=== PATIENT | female | born 1970 | race Hispanic/Latino ===

== ENCOUNTER 2016-10-13 16:43 | Observation (INO) | payer MEDICARE, OTHER ==
[2016-10-13 16:46] VITALS: BMI 14.7
--- NOTE | 2016-10-13 17:04 | ED PDOC ---
Arrival/HPI - General Historian: Patient - History of Present Illness Time/Duration: > week Symptom Onset: Gradual Symptom Course: Worsening Quality: Stabbing Severity Level: Severe Activities at Onset: Rest <Pa Sawant - Last Filed: 10/13/16 23:03> <Ramiro George - Last Filed: 10/13/16 23:10> - General Chief Complaint: Abdominal Pain Time Seen by Provider: 10/13/16 17:01 - History of Present Illness Narrative History of Present Illness (Text): 10/13/16 18:12 46yo F with PMHx significant for HTN, Perf Gastric ulcers s/p multiple ex laps and bowel resection/repair here for evaluation of left sided abd pain. Patient states that she has had nausea, vomiting (non-bilious, non bloody) and diarrhea (non-bloody, not melanotic) for the past 2 weeks. She also c/o severe left sided abd pain which is described as sharp, radiates to the left back and up to left shoulder. The past 3 days, her symptoms have gotten much worse and she is unable to tolerate any PO intake. She states that she was a senior care resident until September 01 due to chronic illness from her history of perforated gastric ulcers and multiple abdominal surgeries. She was discharged two weeks ago and she moved to [place] to [facility]. She states that 2 weeks ago, she had an EGD and was told that she "has multiple esophageal ulcers. " Also reports an 8lb weight loss over the past month. Denies any CP/SOB. No Headaches. No Fevers or chills. No Urinary changes. PMHx: Asthma, Chronic Anemia, HTN, Gastric Ulcers, Esophageal ulcers PSHx: Multiple Exploratory Laparotomies with bowel resection/repair. Cholecystectomy. Partial Gastrectomy. Allergy: Vancomycin (Pa Sawant) Past Medical History - Provider Review Nursing Documentation Reviewed: Yes - Infectious Disease Hx of Infectious Diseases: None - Cardiac Hx Cardiac Disorders: Yes Hx Hypertension: Yes - Pulmonary Hx Respiratory Disorders: Yes Hx Asthma: Yes - Neurological Hx Neurological Disorder: No - HEENT Hx HEENT Disorder: Yes Other/Comment: dry eyes - Renal Hx Renal Disorder: No - Endocrine/Metabolic Hx Endocrine Disorders: No - Hematological/Oncological Hx Blood Disorders: No - Integumentary Hx Dermatological Disorder: No - Musculoskeletal/Rheumatological Hx Musculoskeletal Disorders: Yes Hx Back Pain: Yes - Gastrointestinal Hx Gastrointestinal Disorders: Yes Other/Comment: endoscopy, "removed half my stomach" - Genitourinary/Gynecological Hx Genitourinary Disorders: No - Psychiatric Hx Psychophysiologic Disorder: Yes Hx Anxiety: Yes Hx Depression: Yes Hx Substance Use: No - Surgical History Hx Cholecystectomy: Yes Other/Comment: perforated bowel surgery x2 - Anesthesia Hx Anesthesia: Yes Hx Anesthesia Reactions: No <Pa Sawant - Last Filed: 10/13/16 23:03> Family/Social History - Physician Review Nursing Documentation Reviewed: Yes Family/Social History: Unknown Family HX Smoking Status: Current Some Days Smoker Hx Alcohol Use: No Hx Substance Use: No <Pa Sawant - Last Filed: 10/13/16 23:03> Allergies/Home Meds <Pa Sawant - Last Filed: 10/13/16 23:03> <Ramiro George - Last Filed: 10/13/16 23:10> Allergies/Adverse Reactions: Allergies vancomycin Allergy (Verified 10/13/16 16:46) ANAPHYLAXIS Home Medications: Home Meds Medication Instructions Recorded Confirmed Atenolol [Tenormin] 25 mg PO DAILY 10/13/16 10/13/16 Cetirizine HCl [Zyrtec] 10 mg PO DAILY 10/13/16 10/13/16 Clotrimazole [Mycelex Amado] 10 mg PO DAILY 10/13/16 10/13/16 Diazepam [Valium] 5 mg PO DAILY 10/13/16 10/13/16 DiphenhydrAMINE [Benadryl] 1 tab PO DAILY 10/13/16 10/13/16 Ergocalciferol (Vitamin D2) 1 tab PO QWK 10/13/16 10/13/16 [Vitamin D2] Famotidine [Pepcid] 1 tab PO DAILY 10/13/16 10/13/16 Fluticasone Propionate [Flovent 1 puff IH DAILY 10/13/16 10/13/16 Diskus] Gabapentin [Neurontin] 400 mg PO TID 10/13/16 10/13/16 Iron Sucrose Complex [Venofer] 200 mg IV Q30D 10/13/16 10/13/16 LORazepam [Ativan] 2 mg PO TID 10/13/16 10/13/16 Metoclopramide [Reglan] 5 mg PO DAILY 10/13/16 10/13/16 Nicotine 21 mg/24 hr [Nicoderm Cq] 1 patch TD DAILY 10/13/16 10/13/16 Omeprazole Magnesium [Prilosec Otc] 1 tab PO DAILY 10/13/16 10/13/16 Promethazine [Phenergan] 25 mg PO DAILY 10/13/16 10/13/16 Spironolactone [Aldactone] 1 tab PO DAILY 10/13/16 10/13/16 Sucralfate [Carafate] 10 ml PO DAILY 10/13/16 10/13/16 Trazodone HCl [Trazodone HCl] 150 mg PO DAILY 10/13/16 10/13/16 fentaNYL 100mcg/hr [Duragesic 1 patch TD Q72H 10/13/16 10/13/16 Patch 100mcg/hr] Review of Systems - Physician Review All systems were reviewed & negative as marked: Yes - Review of Systems Constitutional: Fatigue. absent: Fevers Eyes: Normal ENT: Normal Respiratory: Normal Cardiovascular: Normal Gastrointestinal: Abdominal Pain, Diarrhea, Nausea, Vomiting, Appetite Changes Genitourinary Female: absent: Dysuria, Frequency Musculoskeletal: absent: Back Pain Skin: absent: Rash Neurological: absent: Headache, Dizziness Psychiatric: absent: Anxiety, Depression <Savana,Pa - Last Filed: 10/13/16 23:03> Physical Exam Vital Signs Reviewed: Yes Temperature: Afebrile Blood Pressure: Normal Pulse: Tachycardic Respiratory Rate: Normal Appearance: Positive for: Ill-Appearing, Cachectic Pain Distress: Moderate Mental Status: Positive for: Alert and Oriented X 3 - Systems Exam Head: Present: Atraumatic, Normocephalic Extroacular Muscles: Present: EOMI Conjunctiva: Present: Normal Mouth: Present: Moist Mucous Membranes Neck: Present: Normal Range of Motion. No: JVD, Lymphadenopathy Respiratory/Chest: Present: Clear to Auscultation, Good Air Exchange. No: Respiratory Distress, Accessory Muscle Use, Wheezes, Decreased Breath Sounds, Rales, Rhonchi Cardiovascular: Present: Normal S1, S2, Peripheal Pulses Present, Tachycardic. No: Murmurs Abdomen: Present: Tenderness (left upper and left lower abd tenderness.), Other (Midline surgical scar noted. Left sided voluntary guarding. No Rebound tenderness. Soft, non-distended. ) Back: Present: CVA Tenderness (left sided CVA tenderness. No right sided CVA tenderness. No midline tenderness. ) Upper Extremity: Present: Normal Inspection, Normal ROM, NORMAL PULSES Lower Extremity: Present: Normal Inspection, NORMAL PULSES. No: Edema, CALF TENDERNESS, Tenderness Neurological: Present: GCS=15, Speech Normal Skin: Present: Warm, Dry, Normal Color Psychiatric: Present: Alert, Oriented x 3 <Pa Sawant - Last Filed: 10/13/16 23:03> Medical Decision Making <Pa Sawant - Last Filed: 10/13/16 23:03> - Lab Interpretations I have reviewed the lab results: Yes - RAD Interpretation Marketing Director Assisted Living: Radiologist <Ramiro George - Last Filed: 10/13/16 23:10> ED Course and Treatment: 10/13/16 19:52 46yo F with Abd pain, N/V/D - Patient states hx of gastric perforation with multiple previous Exploratory Laparotomies - CBC/CMP/Mg/Phos - Lipase - EKG - Troponin - Blood Cxs - UA/Urine Cxs - CXR - Abd/Pelvis PO and IV contrast - Morphine - 1L NS Bolus - Benadryl - Zofran - Reassess and Dispo 10/13/16 21:39 Labs wnl Hypokalemia noted. Repleted Awaiting VRads report UA - with evidence of UTI Patient denies any clinical symptoms CT Abd pelvis - no acute findings. Does have chronic findings as noted in report. 10/13/16 22:51 Discussed findings with patient. All questions and concerns addressed. Plan for admission to Dr. Mcpherson. Patient understands and agrees. Discussed case with Dr. Mcpherson. Agrees and accepts patient under her care. She requests Surgery and GI consults. And Flagyl coverage. Discussed case with certified surgical technologist. He agrees and will evaluate the patient. (Pa Sawant) 10/13/16 20:11 Patient seen and evaluated with resident. Agree with HPI, clinical findings, plan and treatment Patient is a 46 year old female, with a history of perforated gastric ulcers, and multiple abdominal surgeries, presents to the emergency department complaining of left sided abdominal pain associated with nausea, vomiting and diarrhea for past 2 weeks. States symptoms have worsened over past 3 days. 10/13/16 23:09 Patient with fever; urine shows UTI; CT a/p with no acute findings but still with intractable pain. Dr. Sawant discussed with Dr. Mcpherson who will place the patient on her service. (Ramiro George) - Lab Interpretations Lab Results: 10/13/16 18:00 10/13/16 18:00 Lab Results 10/13/16 18:00: pO2 108 H, VBG pH 7.35, VBG pCO2 51.0, VBG HCO3 28.2 H, VBG Total CO2 29.8 H, VBG O2 Sat (Calc) 97.1 H, VBG Base Excess 1.7, VBG Potassium 3.3 L, Sodium 141.0, Chloride 105.0, Glucose 89, Lactate 1.2, FiO2 21.0, Venous Blood Potassium 3.3 L 10/13/16 18:00: Sodium 141, Chloride 106, Potassium 3.2 L, Carbon Dioxide 25, Anion Gap 13, BUN 13, Creatinine 0.6, Est GFR ( Amer) > 60, Est GFR (Non- Af Amer) > 60, Random Glucose 85, Calcium 8.7, Phosphorus 3.6, Magnesium 1.8, Total Bilirubin 0.3, AST 28, ALT 24, Alkaline Phosphatase 73, Total Protein 6.2 , Albumin 3.4, Globulin 2.7, Albumin/Globulin Ratio 1.3, Lipase 33 10/13/16 18:00: WBC 7.3, RBC 4.61, Hgb 14.7, Hct 45.2, MCV 98.0, MCH 31.9, MCHC 32.5, RDW 15.6 H, Plt Count 259, MPV 8.3, Gran % 59.5, Lymph % (Auto) 32.9, Dare % (Auto) 6.2 H, Eos % (Auto) 1.0 L, Baso % (Auto) 0.4, Gran # 4.33, Lymph # 2.4, Dare # 0.5, Eos # 0.1, Baso # 0.03 10/13/16 17:10: Urine Color Yellow, Urine Appearance Sl cloudy, Urine pH 5.5, Ur Specific [place] 1.025, Urine Protein 30 H, Urine Glucose (UA) Negative, Urine Ketones Trace H, Urine Blood Trace-intact H, Urine Nitrate Positive H, Urine Bilirubin Negative, Urine Urobilinogen 1.0 H, Ur Leukocyte Esterase Trace H, Urine RBC 2 - 5, Urine WBC 25 - 30, Ur Epithelial Cells 6 - 8, Urine Bacteria Many, Urine HCG, Qual Negative - RAD Interpretation Narrative RAD Interpretations (Text): CT Abdomen and Pelvis With Intravenous Contrast Dictated and Authenticated by: Tyshawn Richardson MD FINDINGS: Lower thorax: Atelectatic changes are identified at the bilateral lung bases. ABDOMEN: Liver: There is hepatomegaly. Mild perihepatic ascites is visualized. Mild intrahepatic biliary dilatation is visualized. Within the right hepatic lobe, there is a 0.6 cm hypodense cyst or hemangioma. Hyperdense calcifications are visualized anterior to the liver. Gallbladder and bile ducts: Surgical clips are identified within the gallbladder fossa, compatible with cholecystectomy. Pancreas: Normal contour, without acute peripancreatic stranding. Spleen: No splenomegaly. Adrenals: No mass. Kidneys and ureters: No hydronephrosis. No solid mass. Stomach and bowel: There is gastric wall thickening, suggestive of gastritis. Wall thickening is also visualized of the distal esophagus, suggestive of esophagitis, although additional pathology cannot be excluded. Surgical clips are identified within the upper abdomen and adjacent to the stomach. Appendix: The appendix is not visualized. PELVIS: Bladder: No mass. Reproductive: The uterus is incompletely visualized, which may be postoperative. There is a hypodense suspected nabothian cyst at the level of the cervix measuring 1.0 x 0.8 cm. ABDOMEN and PELVIS: Intraperitoneal space: No free air. Bones/joints: No acute fracture. Vasculature: There is heterogeneous enhancement of a vessel inferior to the left renal vein, likely due to the timing of injection. There is dilatation of the splenic vein and portal vein, suggestive of portal hypertension. Lymph nodes: There is a mildly enlarged left upper para-aortic lymph node measuring 1.7 x 0.6 cm. This is nonspecific as to etiology. No significant pelvic lymphadenopathy. IMPRESSION: 1. There is hepatomegaly. Mild perihepatic ascites is visualized. Mild intrahepatic biliary dilatation is visualized. Correlation with serum bilirubin is visualized. 2. There is gastric wall thickening, suggestive of gastritis. Wall thickening is also visualized of the distal esophagus, suggestive of esophagitis, although additional pathology cannot be excluded. 3. There is dilatation of the splenic vein and portal vein, suggestive of portal hypertension. 4. Within the right hepatic lobe,, there is a 0.6 cm hypodense cyst or hemangioma. 5. There is a mildly enlarged left upper para-aortic lymph node measuring 1.7 x 0.6 cm. This is nonspecific as to etiology. 6. Additional CT findings described above. (Ramiro George) Radiology Orders: 10/13/16 17:34 ABD PELVIS PO & IV CONTRAST [CT] Stat CHEST TWO VIEWS (PA/LAT) [RAD] Stat - Medication Orders Current Medication Orders: Potassium Chloride (Potassium Chloride 10 Meq/100 Ml) 10 meq in 100 mls @ 100 mls/hr IVPB Q2H BELLE Stop: 10/14/16 04:59 Last Admin: 10/13/16 22:29 Dose: 100 mls/hr Sodium Chloride (Sodium Chloride 0.9%) 1,000 mls @ 100 mls/hr IV .Q10H BELLE Metronidazole (Flagyl) 500 mg in 100 mls @ 100 mls/hr IVPB STAT STA PRN Reason: Protocol Stop: 10/13/16 23:59 Discontinued Medications Diphenhydramine HCl (Benadryl) 12.5 mg IVP STAT STA Stop: 10/13/16 18:21 Last Admin: 10/13/16 18:34 Dose: 12.5 mg Fentanyl (Duragesic) 1 patch TD ONCE ONE Stop: 10/13/16 22:52 Sodium Chloride (Sodium Chloride 0.9%) 1,000 mls @ 999 mls/hr IV .Q1H1M STA Stop: 10/13/16 18:52 Last Admin: 10/13/16 18:12 Dose: 999 mls/hr Ceftriaxone Sodium (Rocephin 1 Gram Ivpb) 1 gm in 100 mls @ 200 mls/hr IVPB STAT STA PRN Reason: Protocol Stop: 10/13/16 22:56 Last Admin: 10/13/16 22:44 Dose: 200 mls/hr Iohexol (Omnipaque 240 (50 Ml)) Confirm Administered Dose 50 ml .ROUTE .STK-MED ONE Stop: 10/13/16 18:20 Iohexol (Omnipaque 350 100 Ml) Confirm Administered Dose 350 mg .ROUTE .STK-MED ONE Stop: 10/13/16 19:03 Morphine Sulfate (Morphine) 2 mg IVP STAT STA Stop: 10/13/16 17:35 Last Admin: 10/13/16 18:12 Dose: 2 mg Re-Assess: DEBI Pain Assessment Document 10/13/16 19:12 JOSEPH (Rec: 10/13/16 19:21 [email or web address] [id number]) Pain Reassessment Is this a pain reassessment? Yes Sleep Is patient sleeping during reassessment? No Presence of Pain Presence of Pain Yes Pain Scale Used Pain Scale Used Numeric Description Description Intermittent Intensity of Pain at present 3 Morphine Sulfate (Morphine) 4 mg IVP STAT STA Stop: 10/13/16 22:50 Ondansetron HCl (Zofran Inj) 4 mg IVP STAT STA Stop: 10/13/16 17:35 Last Admin: 10/13/16 18:15 Dose: 4 mg Pantoprazole Sodium (Protonix Inj) 40 mg IVP STAT STA Stop: 10/13/16 22:28 Last Admin: 10/13/16 22:44 Dose: 40 mg - PA / INTERVIEWING CLERK / Resident Statement RHYS has reviewed & agrees with the documentation as recorded. / has examined the patient and agrees with the treatment plan. <Pa Sawant - Last Filed: 10/13/16 23:03> - PA / INTERVIEWING CLERK / Resident Statement RHYS has reviewed & agrees with the documentation as recorded. / has examined the patient and agrees with the treatment plan. <Ramiro George - Last Filed: 10/13/16 23:10> - Scribe Statement Provider Scribe Attestation: All medical record entries made by the Scribe were at my direction and personally dictated by me. I have reviewed the chart and agree that the record accurately reflects my personal performance of the history, physical exam, medical decision making, and the department course for this patient. I have also personally directed, reviewed, and agree with the discharge instructions and disposition. (Ramiro George) Disposition/Present on Arrival - Present on Arrival Any Indicators Present on Arrival: No History of DVT/PE: No History of Uncontrolled Diabetes: No Urinary Catheter: No History of Decub. Ulcer: No History Surgical Site Infection Following: None - Disposition Have Diagnosis and Disposition been Completed?: Yes Disposition Time: 22:55 Patient Plan: Admission, Observation <Pa Sawant - Last Filed: 10/13/16 23:03> <Ramiro George - Last Filed: 10/13/16 23:10> - Disposition Diagnosis: Abdominal pain Disposition: HOSPITALIZED Patient Problems: Current Active Problems Problem Status Onset Abdominal pain Acute Condition: FAIR Referrals: PCP,NO [Primary Care Provider] - Follow up with primary Forms: [employer] (American)
[2016-10-13] MEDS ORDERED: Morphine 2 mg/ml ISec IVP STA (17:34)
[2016-10-13] MEDS ORDERED: Sodium Chloride 0.9% 1,000 ML IV STA (17:52)
[2016-10-13] MEDS ORDERED: Iohexol 240 (50 ml) ONE (18:19)
[2016-10-13] MEDS ORDERED: DiphenhydrAMINE 50 mg/ml Inj IVP STA (18:20)
[2016-10-13 18:26] LABS: BASO # 0.03 K/mm3 (0.0-2.0); BASO % 0.4 % (0.0-3.0); EOS # 0.1 (0.0-0.7); GRAN # 4.33 (1.4-6.5); GRAN % 59.5 % (50.0-68.0); HEMOGLOBIN 14.7 g/dL (12.0-16.0); LYMPH # 2.4 (1.2-3.4); LYMPH % 32.9 % (22.0-35.0); MEAN CORPUSCULAR HEMOGLOBIN 31.9 pg (25.0-35.0); MEAN CORPUSCULAR HGB CONC 32.5 g/dl (31.0-37.0); MEAN PLATELET VOLUME 8.3 fl (7.0-11.0); MONO # 0.5 (0.1-0.6); MONO % 6.2 % (1.0-6.0); PLATELET COUNT 259 10^3/uL (120.0-450.0); RBC 4.61 10^6/uL (3.5-6.1); RED CELL DISTRIBUTION WIDTH 15.6 % (11.5-14.5); WHITE BLOOD COUNT 7.3 10^3/ul (4.5-11.0)
[2016-10-13 18:35] LABS: VENOUS BLOOD GAS BASE EXCESS 1.7 mmol/L (0.0-2.0); VENOUS BLOOD GAS PO2 108 mm/Hg (30-55); VENOUS BLOOD PH 7.35 (7.32-7.43)
[2016-10-13 18:41] LABS: ALB/GLOB RATIO 1.3 (1.1-1.8); ALBUMIN 3.4 g/dL (3.0-4.8); ALT/SGPT 24 U/L (7-56); AST/SGOT 28 U/L (15-39); BLOOD UREA NITROGEN 13 mg/dL (7-21); CALCIUM 8.7 mg/dL (8.4-10.5); GFR AFRICAN-AMERICAN > 60; GFR NON-AFRICAN AMERICAN > 60; LIPASE 33 U/L (23-300); MAGNESIUM 1.8 mg/dL (1.7-2.2)
[2016-10-13 18:43] LABS: PH,URINE 5.5 (4.7-8.0); URINE BILIRUBIN NEGATIVE (NEGATIVE); URINE BLOOD TRACE-INTACT (NEGATIVE); URINE GLUCOSE (UA) NEGATIVE (NEGATIVE); URINE LEUKOCYTE ESTERASE TRACE Leu/uL (NEGATIVE); URINE NITRATE POSITIVE (NEGATIVE); URINE PROTEIN 30 mg/dL (<30 mg/dL)
[2016-10-13 18:50] LABS: URINE APPEARANCE SL CLOUDY (CLEAR); URINE COLOR YELLOW (YELLOW)
[2016-10-13 18:52] LABS: HCG,QUALITATIVE URINE NEGATIVE (NEGATIVE); URINE BACTERIA MANY (NEG); URINE WBC 25 - 30 /hpf (0-6)
[2016-10-13] MEDS ORDERED: Iohexol 350 MG/100 ML VIAL ONE (19:02)
--- NOTE | 2016-10-13 21:56 | CT ---
EXAM: CT Abdomen and Pelvis With Intravenous Contrast EXAM DATE/TIME: 10/13/2016 5:34 PM a focal area of heterogeneous enhancement CLINICAL HISTORY: The patient age is 46 years old and is female; Pain; Abdominal pain; Localized; Left lower quadrant (llq); Prior surgery; Surgery date: 6+ months; Surgery type: Gb, 2 x surgery for perforated bowel; Additional info: Abd pain Facility exam id and description Ct abdpelc abd pelvis po iv contrast TECHNIQUE: Axial computed tomography images of the abdomen and pelvis with intravenous contrast. All CT scans at this facility use one or more dose reduction techniques, viz.: automated exposure control; ma/kV adjustment per patient size (including targeted exams where dose is matched to indication; i.e. head); or iterative reconstruction technique. Coronal and sagittal reformatted images were created and reviewed. CONTRAST: 83 mL of omni 350 administered intravenously. COMPARISON: No relevant prior studies available. FINDINGS: Lower thorax: Atelectatic changes are identified at the bilateral lung bases. ABDOMEN: Liver: There is hepatomegaly. Mild perihepatic ascites is visualized. Mild intrahepatic biliary dilatation is visualized. Within the right hepatic lobe, there is a 0.6 cm hypodense cyst or hemangioma. Hyperdense calcifications are visualized anterior to the liver. Gallbladder and bile ducts: Surgical clips are identified within the gallbladder fossa, compatible with cholecystectomy. Pancreas: Normal contour, without acute peripancreatic stranding. Spleen: No splenomegaly. Adrenals: No mass. Kidneys and ureters: No hydronephrosis. No solid mass. Stomach and bowel: There is gastric wall thickening, suggestive of gastritis. Wall thickening is also visualized of the distal esophagus, suggestive of esophagitis, although additional pathology cannot be excluded. Surgical clips are identified within the upper abdomen and adjacent to the stomach. Appendix: The appendix is not visualized. PELVIS: Bladder: No mass. Reproductive: The uterus is incompletely visualized, which may be postoperative. There is a hypodense suspected nabothian cyst at the level of the cervix measuring 1.0 x 0.8 cm. ABDOMEN and PELVIS: Intraperitoneal space: No free air. Bones/joints: No acute fracture. Vasculature: There is heterogeneous enhancement of a vessel inferior to the left renal vein, likely due to the timing of injection. There is dilatation of the splenic vein and portal vein, suggestive of portal hypertension. Lymph nodes: There is a mildly enlarged left upper para-aortic lymph node measuring 1.7 x 0.6 cm. This is nonspecific as to etiology. No significant pelvic lymphadenopathy. IMPRESSION: 1. There is hepatomegaly. Mild perihepatic ascites is visualized. Mild intrahepatic biliary dilatation is visualized. Correlation with serum bilirubin is visualized. 2. There is gastric wall thickening, suggestive of gastritis. Wall thickening is also visualized of the distal esophagus, suggestive of esophagitis, although additional pathology cannot be excluded. 3. There is dilatation of the splenic vein and portal vein, suggestive of portal hypertension. 4. Within the right hepatic lobe,, there is a 0.6 cm hypodense cyst or hemangioma. 5. There is a mildly enlarged left upper para-aortic lymph node measuring 1.7 x 0.6 cm. This is nonspecific as to etiology. 6. Additional CT findings described above.
[2016-10-13] MEDS ORDERED: cefTRIAXone 1 gm 1 GM/100 ML BAG IVPB STA (22:27)
[2016-10-13] MEDS ORDERED: Morphine 4 mg/ml ISec IVP STA (22:49)
[2016-10-13] MEDS ORDERED: Sodium Chloride 0.9% 1,000 ML IV SCH (23:00)
[2016-10-13] MEDS ORDERED: metroNIDAZOLE IV 500 mg/100 ml 500 MG/100 ML BAG IVPB STA (23:00)
[2016-10-14] MEDS ORDERED: metroNIDAZOLE IV 500 mg/100 ml 500 MG/100 ML BAG IVPB STA (00:31)
--- NOTE | 2016-10-14 00:44 | CP.PCM.PN ---
Subjective - Date & Time of Evaluation Date of Evaluation: 10/14/16 Time of Evaluation: 00:41 - Subjective Subjective: Patient was seen in the emergency room initially and then in her room . When she was in the ER , she wanted to sign out AMA, therefore I was called. When I arrived in the ER, she went out with ER staff to smoke cigarette, after she came back , she decided to stay. Later on I was called from the floor because she demanded her xanax and pain medicine. This 46 years old woman was admitted with worsening abdominal pain, nausea. Has PMH of perforated ulcer, gastrectomy, multiple exploratory laparotomies, hepatomegaly, ascites, allergy to vancomycin. Objective - Vital Signs/Intake and Output Vital Signs (last 24 hours): Temp Pulse Resp BP Pulse Ox 100.5 F H 88 18 125/85 100 10/13/16 17:14 10/13/16 20:12 10/13/16 20:12 10/13/16 20:12 10/13/16 20:12 - Medications Medications: Current Medications Sodium Chloride (Sodium Chloride 0.9%) 1,000 mls @ 100 mls/hr IV .Q10H BELLE Last Admin: 10/14/16 00:33 Dose: 100 mls/hr Metronidazole (Flagyl) 500 mg in 100 mls @ 100 mls/hr IVPB STAT STA PRN Reason: Protocol Stop: 10/14/16 01:30 Potassium Chloride (K-Dur 20 Meq Er Tab) 40 meq PO Q2H BELLE Stop: 10/14/16 01:46 - Constitutional Appears: Well, No Acute Distress - Head Exam Head Exam: ATRAUMATIC, NORMAL INSPECTION, NORMOCEPHALIC - Eye Exam Eye Exam: Normal appearance - ENT Exam ENT Exam: Normal External Ear Exam - Neck Exam Neck Exam: Normal Inspection - Respiratory Exam Respiratory Exam: NORMAL BREATHING PATTERN - Cardiovascular Exam Cardiovascular Exam: absent: JVD - GI/Abdominal Exam GI & Abdominal Exam: Distended (Mild.) - Rectal Exam Rectal Exam: Deferred - Exam Additional comments: Deferred. - Extremities Exam Extremities Exam: Normal Inspection - Back Exam Back Exam: NORMAL INSPECTION - Neurological Exam Neurological Exam: Alert, Awake, Oriented x3 - Psychiatric Exam Psychiatric exam: Normal Affect, Normal Mood - Skin Skin Exam: Normal Color Assessment and Plan - Assessment and Plan (Free Text) Assessment: Abdominal pain. Nausea. Ascites. Hypokalemia. Underweight. Plan: Ativan, benadryl, morphine , zofran, protonix as ordered. Continue present management.
[2016-10-14] MEDS: Potassium Chloride 20 mEq ER Tab PO SCH ×2 (00:53→04:35)
[2016-10-14] MEDS ORDERED: Morphine 2 mg/ml ISec IVP STA (02:07)
[2016-10-14] MEDS ORDERED: DiphenhydrAMINE 50 mg/ml Inj IVP STA (02:07)
[2016-10-14] MEDS ORDERED: HYDROmorphone 0.5 mg/0.5 ml ISec IVP PRN ×2 (07:16→12:41)
[2016-10-14] MEDS ORDERED: HYDROmorphone 1 mg/ml ISec IVP PRN (07:24)
--- NOTE | 2016-10-14 07:24 | CP.PCM.CON ---
<GabrielaAlexis Weston - Last Filed: 10/14/16 07:31> History of Present Illness - History of Present Illness History of Present Illness: Gen Surg Consult: Dr Vega Pt is a 46F w/ PMH of HTN, and multiple perf gastric ulcers. Pt has had multiple ex-laps w/ Bill Albrecht II gastrectomy and HSV, as well as small bowel resection and ventral hernia repair. Pt presents with for evaluation of left sided abdominal pain x 2 weeks. Pt states pain is sharp and radiating to the left back and up to the left shoulder. Pain has escalated in the past 2 days prompting an ED visit. She states she has been unable to tolerate PO intake during this time. Pt recently transferred nursing homes and now is a resident of [facility]. Pt states she no longer has access to her previous physicians. She recently had EGD 2 weeks ago that per the patient she has "multiple esophageal ulcers". Currently she has associated nausea, vomiting (non-bloody, non-billous) and diarrhea. Denies f/c, sob, or chest pain. Pt states pain is similar to previous episodes. Requesting chronic pain dairy management specialist. PMHx: Asthma, Chronic Anemia, HTN, Gastric Ulcers, Esophageal ulcers PSHx: Multiple Exploratory Laparotomies with bowel resection/repair. Cholecystectomy. Partial Gastrectomy. Allergy: Vancomycin Review of Systems - Review of Systems All systems: reviewed and no additional remarkable complaints except (as per hpi ) Past Patient History - Infectious Disease Hx of Infectious Diseases: None - Past Social History Smoking Status: Light Smoker < 10 Cigarettes Daily - CARDIAC Hx Cardiac Disorders: Yes Hx Hypertension: Yes - PULMONARY Hx Respiratory Disorders: Yes Hx Asthma: Yes Other/Comment: Smoker - NEUROLOGICAL Hx Neurological Disorder: No - HEENT Hx HEENT Problems: Yes Other/Comment: dry eyes - RENAL Hx Chronic Kidney Disease: No - ENDOCRINE/METABOLIC Hx Endocrine Disorders: No - HEMATOLOGICAL/ONCOLOGICAL Hx Blood Disorders: No - INTEGUMENTARY Hx Dermatological Problems: No - MUSCULOSKELETAL/RHEUMATOLOGICAL Hx Musculoskeletal Disorders: Yes Hx Back Pain: Yes Hx Falls: No - GASTROINTESTINAL Hx Gastrointestinal Disorders: Yes Other/Comment: endoscopy, "removed half my stomach" - GENITOURINARY/GYNECOLOGICAL Hx Genitourinary Disorders: No - PSYCHIATRIC Hx Psychophysiologic Disorder: Yes Hx Anxiety: Yes Hx Depression: Yes - SURGICAL HISTORY Hx Cholecystectomy: Yes Other/Comment: perforated bowel surgery x2 - ANESTHESIA Hx Anesthesia: Yes Hx Anesthesia Reactions: No Meds Allergies/Adverse Reactions: Allergies Allergy/AdvReac Type Severity Reaction Status Date / Time vancomycin Allergy ANAPHYLAXIS Verified 10/15/16 17:47 - Medications Medications: Current Medications Atenolol (Tenormin) 25 mg PO DAILY [facility] Diphenhydramine HCl (Benadryl) 1 mg PO DAILY [facility] Famotidine (Pepcid) 1 mg PO DAILY [facility] Fentanyl (Duragesic) 1 patch TD Q72H [facility] Gabapentin (Neurontin) 400 mg PO TID [facility] PRN Reason: Protocol Sodium Chloride (Sodium Chloride 0.9%) 1,000 mls @ 100 mls/hr IV .Q10H [facility] Last Admin: 10/14/16 00:33 Dose: 100 mls/hr Lorazepam (Ativan) 2 mg PO TID [facility] PRN Reason: Protocol Metoclopramide HCl (Reglan) 5 mg PO DAILY [facility] Nicotine (Nicoderm Cq) 1 patch TD DAILY [facility] Non-Formulary Medication (Diazepam [Valium]) 5 mg PO DAILY [facility] Non-Formulary Medication (Fluticasone Propionate [Flovent Diskus]) 1 puff IH DAILY [facility] Non-Formulary Medication (Promethazine [Phenergan]) 25 mg PO DAILY [facility] Non-Formulary Medication (Trazodone Hcl [Trazodone Hcl]) 150 mg PO DAILY [facility] Spironolactone (Aldactone) 1 mg PO DAILY [facility] Sucralfate (Carafate Oral Susp) 1 gm PO DAILY [facility] Physical Exam - Constitutional Appears: Non-toxic, No Acute Distress - Eye Exam Eye Exam: Normal appearance - ENT Exam ENT Exam: Normal Exam - Respiratory Exam Respiratory Exam: absent: Accessory Muscle Use, Respiratory Distress - Cardiovascular Exam Cardiovascular Exam: REGULAR RHYTHM. absent: Tachycardia - GI/Abdominal Exam GI & Abdominal Exam: Soft, Tenderness (worse in LUQ but diffuse in nature, worse with deep palpation). absent: Distended, Firm, Guarding, Hernia, Rigid - Rectal Exam Rectal Exam: absent: Deferred - Extremities Exam Extremities exam: Negative for: pedal edema - Neurological Exam Neurological exam: Alert, Oriented x3 - Psychiatric Exam Psychiatric exam: Normal Affect, Normal Mood - Skin Skin Exam: Normal Color, Warm Results - Vital Signs Recent Vital Signs: Last Vital Signs Temp 98.5 F 10/14/16 01:23 Pulse 79 10/14/16 01:23 Resp 16 10/14/16 01:23 BP 142/98 H 10/14/16 01:23 Pulse Ox 97 10/14/16 01:00 - Labs Result Diagrams: 10/13/16 18:00 10/13/16 18:00 Assessment & Plan - Assessment and Plan (Free Text) Assessment: 46F with epigastric and LUQ pain, long-standing history of gastric ulcer disease. Plan: No immediate surgical indications at this time Further mgmt per GI, may need repeat endoscopy will restart home meds including pain control high-dose PPI will cont to follow further recs per Dr Eitan dela cruz d/w Dr Eitan Ochoa, PGY3 - Date & Time Date: 10/14/16 Time: 07:32 <Sohan Vega - Last Filed: 10/18/16 10:31> Results - Vital Signs Recent Vital Signs: Last Vital Signs Temp 98.4 F 10/14/16 07:40 Pulse 80 10/14/16 11:26 Resp 18 10/14/16 07:40 BP 150/96 H 10/14/16 11:26 Pulse Ox 95 10/14/16 07:40 - Labs Result Diagrams: 10/13/16 18:00 10/14/16 11:40 Assessment & Plan - Assessment and Plan (Free Text) Assessment: Dx LUQ Pain:recent UGI Ulceration/Non compliance PPI-Reglan Chronic Pain [id number]) Probable gastroparesis-PUD No surgery needed-UGI Recommended This consult done under my direct supervision. The patient was very reluctant to divulge any information however her Pharmacist @ [facility] was very helpful Avtar VEGA md facs
--- NOTE | 2016-10-14 07:38 | RAD ---
HISTORY: Fever COMPARISON: No prior. TECHNIQUE: Chest PA and lateral FINDINGS: LUNGS: Minimal linear scar/atelectasis at right base. No acute infiltrate. PLEURA: No significant pleural effusion identified. No pneumothorax apparent. CARDIOVASCULAR: Normal. OSSEOUS STRUCTURES: Mild anterior wedge compression deformity of the T7 vertebra, age indeterminate. Please correlate clinically. VISUALIZED UPPER ABDOMEN: Normal. OTHER FINDINGS: None. IMPRESSION: No acute infiltrate. Mild anterior wedge compression deformity of the T7 vertebra, age indeterminate. Otherwise unremarkable.
[2016-10-14 07:41] VITALS: RESP 18; TEMP 98.4; O2SAT 95
[2016-10-14] MEDS ORDERED: DIAZEPAM 5 MG PO SCH (10:00)
[2016-10-14] MEDS ORDERED: FLUTICASONE PROPIONATE IH SCH (10:00)
[2016-10-14] MEDS ORDERED: Sucralfate 1 gm/10 ml Oral Susp UD PO SCH ×2 (10:00→16:30)
[2016-10-14] MEDS ORDERED: PROMETHAZINE 25 MG PO SCH (10:00)
[2016-10-14 11:31] VITALS: BP 150/96; PULSE 80
[2016-10-14 12:03] LABS: ALB/GLOB RATIO 1.2 (1.1-1.8); ALT/SGPT 27 U/L (7-56); AST/SGOT 22 U/L (15-39); BLOOD UREA NITROGEN 6 mg/dL (7-21); CALCIUM 8.1 mg/dL (8.4-10.5); GFR AFRICAN-AMERICAN > 60; GFR NON-AFRICAN AMERICAN > 60
--- NOTE | 2016-10-14 12:44 | CP.PCM.CON ---
<Sharon Villeda - Last Filed: 10/14/16 13:04> History of Present Illness - History of Present Illness History of Present Illness: Seen and examined at the bedside earlier this morning, the chart was reviewed. Request for consultation is for abdominal pain and history of gastric perforation. HPI: This is a 46-year-old female with a past medical history of hypertension, chronic anemia, gastric and esophageal ulcers and gastric perforation with multiple abdominal surgery comes to the emergency room with complaint of left- sided abdominal pain for 2 weeks. She reports that the sharp pain that starts in the epigastric area and radiates to her left upper back and moves up to her shoulder, the intensity of the pain was increasing the past 2 days. She also has been unable to tolerate any oral intake, has been having nausea and vomiting and denies any hematemesis. She also complains of diarrhea no reports of any melena or bright red blood per rectum. The patient had multiple transfer from nursing homes and hospitals in [facility] , she was hospitalized in [facility] in [place], [place], then went [facility] to be close to her AUNT, who then went to an Adult community,to [facility] in [place], [place] she is now currently staying at [facility] in [place], originally she came from [facility] in [place], She was at [facility] beoing followed by a Dr. Whitney prior to her being sent to [place]. As for her GI she reports that she was being followed by Dr. Unger, ? [place], [place],. she reports that she had endoscopy 2 months ago in [address] [place] [address] in [place], found to have esophageal ulcers. She has been taking Carafate daily, Pepcid and Nexium, and has been on Reglan daily for 5 years. She was reports that she was told she had malabsorption and failure to thrive. She does report about an 8 pound weight loss. Her last colonoscopy was 45 years ago and she was told she had colitis.. On admission she had a CT scan of abdomen and pelvis with oral and IV contrast and that revealed hepatomegaly, gastric wall thickening, suggestive of gastritis as well as wall thickening in the distal esophagus. There is also dilatation of the splenic vein and portal vein suggestive of portal hypertension and a 0.6 cm hypodense cyst or hemangioma in the right hepatic lobe. CT scan of abdomen and pelvis with oral contrast shows hepatomegaly, mild perihepatic ascites is visualized, mild intrahepatic biliary dilatation is visualized, within the right hepatic lobe there is a 0.6 cm hypodense cyst or hemangioma. Stomach and bowel shows gastric wall thickening, suggestive of gastritis. There is also wall thickening in the distal esophagus, suggestive of esophagitis. Surgical clips are identified within the upper lobe and adjacent to the stomach. Also there is mildly enlarged left upper para-aortic lymph nodes measuring 1.7 x 0.6 cm this is nonspecific as to etiology. No significant pelvic lymphadenopathy. Past medical history: Asthma, hypertension, chronic anemia, gastric and esophageal ulcers, weight loss,? Malabsorption, chronic pain, patient is on fentanyl patches Past surgical history: Partial gastrectomy, patient is unsure if it's a Billroth I or 2, multiple exploratory laparotomies with bowel resection/repair, cholecystectomy Allergies vancomycin Medications: Reviewed as per MAR Family history: Mother: Hypertension, COPD, [place] Social history: Positive for smoking, denies EtOH or substance abuse Review of systems: Systems reviewed with positive finding see HPI. Past Patient History - Infectious Disease Hx of Infectious Diseases: None - Past Social History Smoking Status: Light Smoker < 10 Cigarettes Daily - CARDIAC Hx Cardiac Disorders: Yes Hx Hypertension: Yes - PULMONARY Hx Respiratory Disorders: Yes Hx Asthma: Yes Other/Comment: Smoker - NEUROLOGICAL Hx Neurological Disorder: No - HEENT Hx HEENT Problems: Yes Other/Comment: dry eyes - RENAL Hx Chronic Kidney Disease: No - ENDOCRINE/METABOLIC Hx Endocrine Disorders: No - HEMATOLOGICAL/ONCOLOGICAL Hx Blood Disorders: No - INTEGUMENTARY Hx Dermatological Problems: No - MUSCULOSKELETAL/RHEUMATOLOGICAL Hx Musculoskeletal Disorders: Yes Hx Back Pain: Yes Hx Falls: No - GASTROINTESTINAL Hx Gastrointestinal Disorders: Yes Other/Comment: endoscopy, "removed half my stomach" - GENITOURINARY/GYNECOLOGICAL Hx Genitourinary Disorders: No - PSYCHIATRIC Hx Psychophysiologic Disorder: Yes Hx Anxiety: Yes Hx Depression: Yes - SURGICAL HISTORY Hx Cholecystectomy: Yes Other/Comment: perforated bowel surgery x2 - ANESTHESIA Hx Anesthesia: Yes Hx Anesthesia Reactions: No Meds Allergies/Adverse Reactions: Allergies Allergy/AdvReac Type Severity Reaction Status Date / Time vancomycin Allergy ANAPHYLAXIS Verified 10/13/16 16:46 - Medications Medications: Current Medications Atenolol (Tenormin) 25 mg PO DAILY [facility] Last Admin: 10/14/16 11:26 Dose: 25 mg Diphenhydramine HCl (Benadryl) 25 mg PO DAILY [facility] Last Admin: 10/14/16 11:34 Dose: Not Given Fentanyl (Duragesic) 1 patch TD Q72H [facility] Last Admin: 10/14/16 11:33 Dose: Not Given Gabapentin (Neurontin) 400 mg PO TID [facility] PRN Reason: Protocol Last Admin: 10/14/16 11:35 Dose: Not Given Sodium Chloride (Sodium Chloride 0.9%) 1,000 mls @ 100 mls/hr IV .Q10H [facility] Last Admin: 10/14/16 00:33 Dose: 100 mls/hr Lorazepam (Ativan) 1 mg IVP Q8H PRN; Protocol PRN Reason: Anxiety Metoclopramide HCl (Reglan) 5 mg PO DAILY [facility] Last Admin: 10/14/16 11:35 Dose: Not Given Nicotine (Nicoderm Cq) 1 patch TD DAILY [facility] Last Admin: 10/14/16 11:26 Dose: 1 patch Non-Formulary Medication (Fluticasone Propionate [Flovent Diskus]) 1 puff IH DAILY [facility] Non-Formulary Medication (Promethazine [Phenergan]) 25 mg PO DAILY [facility] Pantoprazole Sodium (Protonix Inj) 40 mg IVP Q12 [facility] Last Admin: 10/14/16 11:26 Dose: 40 mg Spironolactone (Aldactone) 25 mg PO DAILY [facility] Last Admin: 10/14/16 11:34 Dose: Not Given Sucralfate (Carafate Oral Susp) 1 gm PO DAILY [facility] Last Admin: 10/14/16 11:35 Dose: Not Given Trazodone HCl (Desyrel) 150 mg PO DAILY [facility] Last Admin: 10/14/16 11:35 Dose: Not Given Physical Exam - Constitutional Appears: Cachectic - Head Exam Head Exam: NORMOCEPHALIC - Eye Exam Eye Exam: Normal appearance. absent: Scleral icterus - ENT Exam ENT Exam: Mucous Membranes Moist - Neck Exam Neck exam: Positive for: Normal Inspection - Respiratory Exam Respiratory Exam: NORMAL BREATHING PATTERN. absent: Respiratory Distress - Cardiovascular Exam Cardiovascular Exam: +S1, +S2 - GI/Abdominal Exam GI & Abdominal Exam: Soft, Tenderness (mostly epigastic ). absent: Distended, Guarding, Organomegaly, Rebound - Extremities Exam Extremities exam: Positive for: pedal pulses present. Negative for: calf tenderness, pedal edema - Neurological Exam Neurological exam: Alert, Oriented x3 - Skin Skin Exam: Dry, Warm Results - Vital Signs Recent Vital Signs: Last Vital Signs Temp 98.4 F 10/14/16 07:40 Pulse 80 10/14/16 11:26 Resp 18 10/14/16 07:40 BP 150/96 H 10/14/16 11:26 Pulse Ox 95 10/14/16 07:40 - Labs Result Diagrams: 10/13/16 18:00 10/14/16 11:40 Labs: Laboratory Results - last 24 hr 10/14/16 11:40 Sodium 141 Potassium 3.0 L Chloride 106 Carbon Dioxide 25 Anion Gap 13 BUN 6 L Creatinine 0.5 Est GFR ( Amer) > 60 Est GFR (Non-Af Amer) > 60 Random Glucose 78 Calcium 8.1 L Total Bilirubin 0.2 AST 22 ALT 27 Alkaline Phosphatase 65 Total Protein 5.5 L Albumin 3.0 Globulin 2.4 Albumin/Globulin Ratio 1.2 Assessment & Plan - Assessment and Plan (Free Text) Assessment: ASSESSMENT: Abdominal Pain H/O Esophageal Ulcer H/O Perforated Ulcer multiple exp lap with Bilroth gastrectomy Weight Loss Chronic Anemia Diarrhea Hypokalemia HTN UTI PLAN: start clear liquid continue Protonix BID, would stop PEPCID on Ceftriaxone continue carafate on reglan, would recommend short course secondary to extraprymidal effects zofran prn nausea hepatitis panel request copies of recent egd for review, GI:DR. Sina Unger: office [place], [place] stool cdiff/stool culture surgery following Thank you for this consult and for allowing us to participate in your patient care, will make further recommendation based upon clinical course. Seen and discussed w/ Dr. Jolley. <Maurice Maynard V - Last Filed: 10/15/16 16:32> Results - Vital Signs Recent Vital Signs: Last Vital Signs Temp 98.4 F 10/14/16 07:40 Pulse 80 10/14/16 11:26 Resp 18 10/14/16 07:40 BP 150/96 H 10/14/16 11:26 Pulse Ox 95 10/14/16 07:40 - Labs Result Diagrams: 10/13/16 18:00 10/14/16 11:40 Labs: Laboratory Results - last 24 hr 10/14/16 10/14/16 11:40 13:10 Sodium 141 Potassium 3.0 L Chloride 106 Carbon Dioxide 25 Anion Gap 13 BUN 6 L Creatinine 0.5 Est GFR ( Amer) > 60 Est GFR (Non-Af Amer) > 60 Random Glucose 78 Calcium 8.1 L Total Bilirubin 0.2 AST 22 ALT 27 Alkaline Phosphatase 65 Total Protein 5.5 L Albumin 3.0 Globulin 2.4 Albumin/Globulin Ratio 1.2 Hepatitis A IgM Ab Negative Hep Bs Antigen Negative Hep B Core IgM Ab Negative Hepatitis C Antibody Negative Attending/Attestation - Attestation I have personally seen and examined this patient.: Yes I have fully participated in the care of the patient.: Yes I have reviewed all pertinent clinical information: Yes Notes (Text): This patient was seen and evaluated earlier. The imaging studies were reviewed. On examination patient appeared cachectic. Abdomen soft mild tenderness on deep palpation in the epigastric area otherwise unremarkable Discussed with the patient at length. Patient was a nurse. History of status post Billroth II gastrectomy for gastric perforation in [facility] in 2006. Complicated hospital course. Patient had endoscopies and colonoscopies done in the past . The last EGD was in [facility]. History of esophageal ulcerations. Patient is on narcotics for chronic pain. PLAN 1.We need to get previous workup reports before considering repeat procedures. 2.we would start the patient on clear liquid diet 3. Continue PPI 4. Will try to get her previous GI workup Thank you very much for allowing us to participate in the care of the patient.
--- NOTE | 2016-10-14 12:55 | CP.PCM.PCO ---
Physician Communication Note - Physician Communication Note Physician Communication Note: Dx PUD/Gastroparesis-noncompliant reglan/carafate- No Surgery patito!
[2016-10-14 19:06] LABS: HEPATITIS B SURFACE AG NEGATIVE (NEGATIVE)
[2016-10-14 19:11] LABS: HEPATITIS A IGM NEGATIVE (NEGATIVE)
[2016-10-14 19:12] LABS: HEPATITIS B CORE AB NEGATIVE (NEGATIVE)
[2016-10-14 19:24] LABS: HEPATITIS C ANTIBODY NEGATIVE (NEGATIVE)
--- NOTE | 2016-10-15 01:03 | HP ---
HISTORY OF PRESENT ILLNESS: The patient is a 46-year-old with complex past medical history. She came to the hospital because of worsening abdominal pain, complained of having nausea. No hemoptysis. No hematemesis. No black stool. The patient is not a very good historian. She states "all I need is my pain medication." The patient states her history goes back to 2007. She states she was very stressed out and at that point she had abdominal pain and she got perforated ulcer. She had gastrectomy done. Since then she has been downhill and she developed dumping syndrome followed by multiple exploratory laparotomies for adhesions. Does not know the timeline. So, she was being cared by physicians and other time she has been on multiple pain medications. The patient states she has lost significant weight and recently her abdominal pain got worse. She ran out of medications, so she came to emergency room for evaluation. PAST MEDICAL HISTORY: As above. ALLERGIES: HE IS ALLERGIC TO VANCOMYCIN. MEDICATIONS AT HOME: She is on vitamin D, she is on iron supplementation, Aldactone, nicotine patch, Ativan 2 mg three times a day, Duragesic patch 100 mcg every 72 hours, Pepcid, Benadryl, Mycelex marissa, omeprazole 40 mg daily, diazepam 5 mg daily, trazodone 150 mg daily, Carafate four times a day, gabapentin 400 three times a day, atenolol 25 mg daily, Reglan 5 mg before meals as needed. SOCIAL HISTORY: Denies alcohol use. Used to smoke heavy, but recently she is a light smoker. REVIEW OF SYSTEMS: Complaining of periumbilical discomfort and complaining of feeling nauseous. PHYSICAL EXAMINATION: GENERAL: The patient is awake and alert, communicative. VITAL SIGNS: She is afebrile. Pulse 80, respirations 18, blood pressure 150/96. LUNGS: Bilateral fair air flow. No rhonchi or crackles. HEART: S1 and S2, audible. ABDOMEN: Soft, has palpable periumbilical discomfort. NEUROLOGIC: She is awake and alert, communicative. Moves all extremities. Sleepy, but arousable. LABORATORY DATA: WBC 7.3, hemoglobin 14, hematocrit . Chemistry; sodium 141, potassium 3.0, chloride 106, CO2 of 25, BUN 6, creatinine 0.5. Blood sugar of 78. Urinalysis shows positive nitrites and leukocyte esterase. CT scan of the abdomen and pelvis is unremarkable. ASSESSMENT AND PLAN: 1. Abdominal pain, etiology unclear. The patient states she recently had endoscopy done and was told that she has esophagitis. 2. Hepatomegaly with perihepatic ascites. 3. Splenic vein dilatation suggestive of portal hypertension. 4. Hypokalemia. 5. Urinary tract infection. PLAN: We will start the patient on clear liquid diet. We will start her on Carafate, high dose PPI. Start her on Rocephin. GI consult by Dr. Maynard and surgical consult by Dr. Martínez has been requested. I do not think this is surgical abdomen, probably part of her chronic pain syndrome and she has not been taking her PPI as prescribed as outpatient, so we will restart. Once she feels comfortable, she can be discharged. Awa Mcpherson MD
[2016-10-15] MEDS ORDERED: cefTRIAXone 1 gm 1 GM/100 ML BAG IVPB SCH (10:00)
== END 2016-10-14 14:12 | disposition left against medical advice (07) ==
LOC: ED 16:43 → ERH 22:56 → UNDOADMIN 23:15 → ERH 10-14 → 3RNO 10-14 01:20
PROVIDERS: ADMIT Internal Medicine; ATTEND Internal Medicine
DX: R10.9 Unspecified abdominal pain (principal); D18.03 Hemangioma of intra-abdominal structures; D64.9 Anemia, unspecified; I10 Essential (primary) hypertension; E87.6 Hypokalemia; F17.200 Nicotine dependence, unspecified, uncomplicated; K90.9 Intestinal malabsorption, unspecified; J45.909 Unspecified asthma, uncomplicated; K22.10 Ulcer of esophagus without bleeding; K52.9 Noninfective gastroenteritis and colitis, unspecified; K91.1 Postgastric surgery syndromes; N39.0 Urinary tract infection, site not specified; R18.8 Other ascites; R16.0 Hepatomegaly, not elsewhere classified; R62.7 Adult failure to thrive; R64 Cachexia; Z79.891 Long term (current) use of opiate analgesic; Z79.899 Other long term (current) drug therapy; Z87.11 Personal history of peptic ulcer disease; Z82.49 Family history of ischemic heart disease and other diseases of the circulatory system; Z82.5 Family history of asthma and other chronic lower respiratory diseases; Z88.1 Allergy status to other antibiotic agents; Z90.3 Acquired absence of stomach [part of]; Z90.49 Acquired absence of other specified parts of digestive tract; H04.123 Dry eye syndrome of bilateral lacrimal glands; F41.9 Anxiety disorder, unspecified; F32.89 Other specified depressive episodes; Z87.892 Personal history of anaphylaxis; R40.2412 Glasgow coma scale score 13-15, at arrival to emergency department; N88.8 Other specified noninflammatory disorders of cervix uteri; K76.6 Portal hypertension; G89.4 Chronic pain syndrome; K29.70 Gastritis, unspecified, without bleeding; K20.9 Esophagitis, unspecified; R63.4 Abnormal weight loss; K31.84 Gastroparesis; Z91.19 Patient's noncompliance with other medical treatment and regimen
CPT/HCPCS: 36415; 71020; 74177; 80053; 80074; 81001; 82803; 83690; 83735; 84100; 84703; 85025; 87040; 87086; 87181; 96361; 96374; 96375; 96376; 99285; C9113; G0378; J0696; J1170; J1200; J2060; J2270; J2405; J3480; J7040; Q9966; Q9967

== ENCOUNTER 2016-10-15 14:26 | Observation (INO) | payer MEDICARE, OTHER ==
[2016-10-15 14:27] VITALS: BMI 14.7
[2016-10-15 14:45] VITALS: TEMP 98.2
[2016-10-15] MEDS ORDERED: Sodium Chloride 0.9% 1,000 ML IV STA (15:04)
--- NOTE | 2016-10-15 15:22 | ED PDOC ---
Arrival/HPI - General Chief Complaint: GI Problem Time Seen by Provider: 10/15/16 14:37 Historian: Patient - History of Present Illness Narrative History of Present Illness (Text): 10/15/16 15:21 A 46 year old female, whose past medical history includes Perf gastric ulcers and chronic pain, presents to the emergency department complaining of abdominal pain, nausea and vomiting. Patient last reported to the emergency department two days ago and signed out against medical advice because she was "not getting medications." Patient denies fever, diarrhea or any other complaint at this time. Symptom Onset: Sudden Symptom Course: Unchanged Activities at Onset: Rest Context: Home Past Medical History - Provider Review Nursing Documentation Reviewed: Yes - Infectious Disease Hx of Infectious Diseases: None - Cardiac Hx Cardiac Disorders: Yes Hx Hypertension: Yes - Pulmonary Hx Respiratory Disorders: Yes Hx Asthma: Yes Other/Comment: Smoker - Neurological Hx Neurological Disorder: No - HEENT Hx HEENT Disorder: Yes Other/Comment: dry eyes - Renal Hx Renal Disorder: No - Endocrine/Metabolic Hx Endocrine Disorders: No - Hematological/Oncological Hx Blood Disorders: No - Integumentary Hx Dermatological Disorder: No - Musculoskeletal/Rheumatological Hx Musculoskeletal Disorders: Yes Hx Back Pain: Yes Hx Falls: No - Gastrointestinal Hx Gastrointestinal Disorders: Yes Other/Comment: endoscopy, "removed half my stomach" - Genitourinary/Gynecological Hx Genitourinary Disorders: No - Psychiatric Hx Psychophysiologic Disorder: Yes Hx Anxiety: Yes Hx Depression: Yes Hx Substance Use: No - Surgical History Hx Cholecystectomy: Yes Other/Comment: perforated bowel surgery x2 - Anesthesia Hx Anesthesia: Yes Hx Anesthesia Reactions: No Family/Social History - Physician Review Nursing Documentation Reviewed: Yes Family/Social History: No Known Family HX Smoking Status: Light Smoker < 10 Cigarettes Daily Hx Alcohol Use: No Hx Substance Use: No Allergies/Home Meds Allergies/Adverse Reactions: Allergies vancomycin Allergy (Verified 10/15/16 17:47) ANAPHYLAXIS Home Medications: Home Meds Medication Instructions Recorded Confirmed Atenolol [Tenormin] 25 mg PO DAILY 10/13/16 10/15/16 Cetirizine HCl [Zyrtec] 10 mg PO DAILY 10/13/16 10/15/16 Clotrimazole [Mycelex Amado] 10 mg PO DAILY 10/13/16 10/15/16 Diazepam [Valium] 5 mg PO DAILY 10/13/16 10/15/16 DiphenhydrAMINE [Benadryl] 1 tab PO DAILY 10/13/16 10/15/16 Ergocalciferol (Vitamin D2) 1 tab PO QWK 10/13/16 10/15/16 [Vitamin D2] Famotidine [Pepcid] 1 tab PO DAILY 10/13/16 10/15/16 Fluticasone Propionate [Flovent 1 puff IH DAILY 10/13/16 10/15/16 Diskus] Gabapentin [Neurontin] 400 mg PO TID 10/13/16 10/15/16 Iron Sucrose Complex [Venofer] 200 mg IV Q30D 10/13/16 10/15/16 LORazepam [Ativan] 2 mg PO TID 10/13/16 10/15/16 Metoclopramide [Reglan] 5 mg PO DAILY 10/13/16 10/15/16 Nicotine 21 mg/24 hr [Nicoderm Cq] 1 patch TD DAILY 10/13/16 10/15/16 Omeprazole Magnesium [Prilosec Otc] 1 tab PO DAILY 10/13/16 10/15/16 Promethazine [Phenergan] 25 mg PO DAILY 10/13/16 10/15/16 Spironolactone [Aldactone] 1 tab PO DAILY 10/13/16 10/15/16 Sucralfate [Carafate] 10 ml PO DAILY 10/13/16 10/15/16 Trazodone HCl [Trazodone HCl] 150 mg PO DAILY 10/13/16 10/15/16 fentaNYL 100mcg/hr [Duragesic 1 patch TD Q72H 10/13/16 10/15/16 Patch 100mcg/hr] Review of Systems - Physician Review All systems were reviewed & negative as marked: Yes - Review of Systems Constitutional: absent: Fevers Gastrointestinal: Abdominal Pain, Nausea, Vomiting. absent: Diarrhea Physical Exam Vital Signs Reviewed: Yes Vital Signs Temp Pulse Resp BP Pulse Ox 10/15/16 16:39 87 16 120/75 99 10/15/16 15:46 99 H 18 115/74 95 10/15/16 14:44 98.2 F 112 H 18 113/81 95 Temperature: Afebrile Blood Pressure: Normal Pulse: Tachycardic Respiratory Rate: Normal Appearance: Positive for: Well-Appearing, Non-Toxic, Comfortable Pain Distress: None Mental Status: Positive for: Alert and Oriented X 3 - Systems Exam Head: Present: Atraumatic, Normocephalic Pupils: Present: PERRL Extroacular Muscles: Present: EOMI Conjunctiva: Present: Normal Mouth: Present: Moist Mucous Membranes Neck: Present: Normal Range of Motion Respiratory/Chest: Present: Clear to Auscultation, Good Air Exchange. No: Respiratory Distress, Accessory Muscle Use Cardiovascular: Present: Regular Rate and Rhythm, Normal S1, S2. No: Murmurs Abdomen: Present: Tenderness (mild epigastric), Normal Bowel Sounds. No: Distention, Peritoneal Signs, Rebound, Guarding Back: Present: Normal Inspection Upper Extremity: Present: Normal Inspection. No: Cyanosis, Edema Lower Extremity: Present: Normal Inspection. No: Edema Neurological: Present: GCS=15, CN II-XII Intact, Speech Normal Skin: Present: Warm, Dry, Normal Color. No: Rashes Psychiatric: Present: Alert, Oriented x 3, Normal Insight, Normal Concentration Medical Decision Making ED Course and Treatment: 10/15/16 15:19 Impression: A 46 year old female with abdominal pain, nausea and vomiting. Plan: -- chest xray -- labs -- Urinalysis -- Zofran, IV fluids -- Reassess and disposition Prior Visits: Notes and results from previous visits were reviewed. Patient was last seen in the emergency department on 10/13/16 for evaluation of left sided abdominal pain. Progress Notes: 10/15/16 16:07 chest xray Creator : Raghu Wilcox MD IMPRESSION: No active disease. 10/15/16 16:12 njrx reviews shows multiple rx for fentanyl. pt advised will be treated with non ncarotic medication in er. pt with mild hypoglyemia, inablity to take po, needs admission for ivf. dr coleman accepts, requests dr rivas on consult. - Lab Interpretations Lab Results: 10/15/16 15:00 10/15/16 15:00 Lab Results 10/15/16 15:00: Sodium 143, Potassium 3.4 L, Chloride 108 H, Carbon Dioxide 28, Anion Gap 10, BUN 10, Creatinine 0.5, Est GFR ( Amer) > 60, Est GFR (Non- Af Amer) > 60, Random Glucose 56 L, Calcium 8.4, Total Bilirubin 0.2, AST 26, ALT 26, Alkaline Phosphatase 73, Total Protein 6.2, Albumin 3.5, Globulin 2.7, Albumin/Globulin Ratio 1.3, Lipase 39 10/15/16 15:00: Urine Color Yellow, Urine Appearance Clear, Urine pH 5.5, Ur Specific [place] >= 1.030, Urine Protein 30 H, Urine Glucose (UA) Negative, Urine Ketones Negative, Urine Blood Negative, Urine Nitrate Negative, Urine Bilirubin Negative, Urine Urobilinogen 1.0 H, Ur Leukocyte Esterase Negative, Urine RBC 0 - 2, Urine WBC 1 - 3, Ur Epithelial Cells 4 - 5, Amorphous Sediment Few, Urine Bacteria Mod, Urine HCG, Qual Negative 10/15/16 15:00: PT 11.2, INR 1.04, APTT 29.5 10/15/16 15:00: WBC 5.9, RBC 4.55, Hgb 14.5, Hct 44.7, MCV 98.2, MCH 31.9, MCHC 32.4, RDW 15.4 H, Plt Count 245, MPV 8.2, Gran % 50.3, Lymph % (Auto) 37.2 H, [place] % (Auto) 9.0 H, Eos % (Auto) 3.2, Baso % (Auto) 0.3, Gran # 2.95, Lymph # 2.2, [place] # 0.5, Eos # 0.2, Baso # 0.02 I have reviewed the lab results: Yes - RAD Interpretation Radiology Orders: 10/15/16 15:09 CXR [CHEST PORTABLE] [RAD] Stat - Medication Orders Current Medication Orders: Discontinued Medications Albuterol/Ipratropium (Duoneb 3 Mg/0.5 Mg (3 Ml) Ud) 3 ml IH [id number] PRN PRN Reason: Shortness of Breath Atenolol (Tenormin) 25 mg PO DAILY BELLE Atenolol (Tenormin) 25 mg PO DAILY BELLE Clotrimazole (Mycelex Amado) 10 mg PO DAILY BELLE Fentanyl (Duragesic) 1 patch TD Q72H BELLE Gabapentin (Neurontin) 400 mg PO TID BELLE PRN Reason: Protocol Last Admin: 10/15/16 19:06 Dose: Not Given Non-Admin Reason: Patient Refused Sodium Chloride (Sodium Chloride 0.9%) 1,000 mls @ 999 mls/hr IV .Q1H1M STA Stop: 10/15/16 16:04 Last Admin: 10/15/16 15:36 Dose: 999 mls/hr Dextrose/Sodium Chloride (Dextrose 5%/0.45% Ns 1000 Ml) 1,000 mls @ 80 mls/hr IV .[id number] BELLE Last Admin: 10/15/16 16:37 Dose: 80 mls/hr Potassium Chloride (Potassium Chloride 10 Meq/100 Ml) 10 meq in 100 mls @ 100 mls/hr IVPB Q2H BELLE Stop: 10/15/16 19:59 Last Admin: 10/15/16 19:07 Dose: Not Given Non-Admin Reason: Patient Refused Nicotine (Nicoderm Cq) 1 patch TD DAILY BELLE Ondansetron HCl (Zofran Inj) 4 mg IVP STAT STA Stop: 10/15/16 15:07 Last Admin: 10/15/16 15:45 Dose: 4 mg Ondansetron HCl (Zofran Inj) 4 mg IVP Q6H PRN PRN Reason: Nausea/Vomiting Ondansetron HCl (Zofran Inj) 4 mg IVP ONCE STA Stop: 10/15/16 20:19 Last Admin: 10/15/16 20:31 Dose: 4 mg Pneumococcal Polyvalent Vaccine (Pneumovax 23 Vaccine) 0.5 ml IM .ONCE ONE Stop: 10/15/16 18:49 Spironolactone (Aldactone) 25 mg PO DAILY [facility] Sucralfate (Carafate Oral Susp) 1 gm PO DAILY [facility] - Scribe Statement The provider has reviewed the documentation as recorded by the Charissa Porter Provider Scribe Attestation: All medical record entries made by the Alfredoibmadeleine were at my direction and personally dictated by me. I have reviewed the chart and agree that the record accurately reflects my personal performance of the history, physical exam, medical decision making, and the department course for this patient. I have also personally directed, reviewed, and agree with the discharge instructions and disposition. Disposition/Present on Arrival - Present on Arrival Any Indicators Present on Arrival: No History of DVT/PE: No History of Uncontrolled Diabetes: No Urinary Catheter: No History of Decub. Ulcer: No History Surgical Site Infection Following: Abdominal Surgery - Disposition Have Diagnosis and Disposition been Completed?: Yes Diagnosis: Abdominal pain Disposition: HOSPITALIZED Disposition Time: 04:00 Condition: STABLE
[2016-10-15 15:49] LABS: BASO # 0.02 K/mm3 (0.0-2.0); BASO % 0.3 % (0.0-3.0); EOS # 0.2 (0.0-0.7); EOS % 3.2 % (1.5-5.0); GRAN # 2.95 (1.4-6.5); GRAN % 50.3 % (50.0-68.0); HEMATOCRIT 44.7 % (36.0-48.0); LYMPH # 2.2 (1.2-3.4); LYMPH % 37.2 % (22.0-35.0); MEAN CELL VOLUME 98.2 fl (80.0-105.0); MEAN CORPUSCULAR HEMOGLOBIN 31.9 pg (25.0-35.0); MEAN CORPUSCULAR HGB CONC 32.4 g/dl (31.0-37.0); MEAN PLATELET VOLUME 8.2 fl (7.0-11.0); MONO # 0.5 (0.1-0.6); PH,URINE 5.5 (4.7-8.0); RED CELL DISTRIBUTION WIDTH 15.4 % (11.5-14.5); URINE BILIRUBIN NEGATIVE (NEGATIVE); URINE BLOOD NEGATIVE (NEGATIVE); URINE GLUCOSE (UA) NEGATIVE (NEGATIVE); URINE KETONE NEGATIVE (NEGATIVE); URINE LEUKOCYTE ESTERASE NEGATIVE Leu/uL (NEGATIVE); URINE PROTEIN 30 mg/dL (<30 mg/dL); WHITE BLOOD COUNT 5.9 10^3/ul (4.5-11.0)
[2016-10-15 15:51] LABS: URINE APPEARANCE CLEAR (CLEAR); URINE COLOR YELLOW (YELLOW)
[2016-10-15 15:59] LABS: INR 1.04 (0.93-1.08); PARTIAL THROMBOPLASTIN TIME 29.5 Seconds (23.7-30.8)
[2016-10-15 16:00] LABS: ALB/GLOB RATIO 1.3 (1.1-1.8); ALKALINE PHOSPHATASE 73 U/L (38-133); ALT/SGPT 26 U/L (7-56); AST/SGOT 26 U/L (15-39); BILIRUBIN,TOTAL 0.2 mg/dL (0.2-1.3); BLOOD UREA NITROGEN 10 mg/dL (7-21); CALCIUM 8.4 mg/dL (8.4-10.5); CARBON DIOXIDE 28 mmol/L (21-33); CHLORIDE 108 mmol/L (98-107); GFR AFRICAN-AMERICAN > 60; GLUCOSE,RANDOM 56 mg/dL (70-110); LIPASE 39 U/L (23-300); POTASSIUM 3.4 mmol/L (3.6-5.0); SODIUM 143 mmol/L (132-148); TOTAL PROTEIN 6.2 g/dL (5.8-8.3)
--- NOTE | 2016-10-15 16:04 | RAD ---
HISTORY: abd pain COMPARISON: 10/13/2016 FINDINGS: LUNGS: No active pulmonary disease. PLEURA: No significant pleural effusion identified, no pneumothorax apparent. CARDIOVASCULAR: Normal. OSSEOUS STRUCTURES: No significant abnormalities. VISUALIZED UPPER ABDOMEN: Normal. OTHER FINDINGS: None. IMPRESSION: No active disease.
[2016-10-15 16:09] LABS: URINE AMORPHOUS SEDIMENT FEW; URINE BACTERIA MOD (NEG); URINE RBC 0 - 2 /hpf (0-2)
[2016-10-15] MEDS ORDERED: Dextrose 5%/0.45% NS 1,000 ML IV SCH (16:15)
[2016-10-15 16:40] VITALS: BP 120/75; PULSE 87; RESP 16; O2SAT 99
[2016-10-15] MEDS ORDERED: Albuterol-Ipratrop 3 mg / 0.5 (3 ml) UD IH PRN (18:01)
[2016-10-15] MEDS ORDERED: Pneumococcal 23-Valent Vaccine IM ONE (18:48)
[2016-10-16] MEDS ORDERED: Sucralfate 1 gm/10 ml Oral Susp UD PO SCH (10:00)
--- NOTE | 2016-10-17 03:41 | HP ---
DATE: 10/15/2016 HISTORY OF PRESENT ILLNESS: This 46-year-old female was originally hospitalized at [facility] yesterday and she left AMA on the same day of admission. She re-presented to the [facility] ER today and complained of persistent abdominal discomfort, nausea, vomiting, and diarrhea, and was again admitted for this issue. PAST MEDICAL HISTORY: Significant for history of perforated gastric ulcer, chronic pain syndrome with history of abdominal adhesions, exploratory laparotomy, cholecystectomy, and chronic hypertension. The patient has comorbidities of anxiety, gastroparesis, peptic ulcer disease with GERD, and COPD. She is a chronic smoker. She previously followed with gastroenterology, surgery, and pain management prior to moving from [facility] to [facility] and is a former nurse, who is on chronic Medicare Disability. MEDICATIONS: She states that her outpatient medications included Duragesic Patch 100 mcg q.72 hours, trazodone 150 mg p.o. daily, Carafate 1 g p.o. daily, Aldactone 25 mg p.o. daily, Prilosec 1 tablet p.o. daily, Ativan 2 mg p.o. t.i.d., Neurontin 400 mg p.o. t.i.d., Flovent Diskus 1 puff daily, Valium 5 mg p.o. daily, Mycelex marissa 10 mg p.o. daily, and Tenormin 25 mg p.o. daily. ALLERGIES: SHE ADMITS TO AN ANAPHYLACTIC REACTION TO VANCOMYCIN. SOCIAL HISTORY: She states she is a 1-pack cigarettes per day smoker, nondrinker, and non-IV drug misuser. FAMILY HISTORY: Noncontributory. REVIEW OF SYSTEMS: Head review: No headache or seizure. Eyes review: No change in visual acuity. Ear review: No hearing loss. Throat review: No swallowing difficulty. Neck review: No stiffness. Cardiac review: Chronic hypertension. Pulmonary: Chronic obstructive pulmonary disease. She is an active smoker. GI: As per HPI. : No history of kidney stones or renal failure. Vascular: No claudication. Psychological: Chronic anxiety. Neurological: Denied any knowledge of stroke. Endocrinologic: Denied any knowledge of diabetes mellitus. PHYSICAL EXAMINATION: GENERAL: The patient was lying in bed, alert and cooperative with questioning. VITAL SIGNS: Temperature 98.2, respirations 18, pulse 87, blood pressure 120/75 with a pulse ox of 99% on room air. HEENT: Head is normocephalic and atraumatic. Eyes, no icterus. Ears clear. Throat noninjected. NECK: Supple. HEART: Regular. S1 and S2. LUNGS: Clear to auscultation. ABDOMEN: Soft and nontender. No palpable organomegaly. No rebound. No guarding. No tenderness. There is a well-healed vertical incisional scar. EXTREMITIES: No clubbing. No cyanosis. No edema. SKIN: Without rash. NEUROLOGIC: Grossly intact. PSYCHOLOGIC: Anxious. VASCULAR: Legs warm to touch. LABORATORY DATA: Sodium 143, potassium 3.4, chloride 108, bicarbonate 28, BUN 10, creatinine 0.5, and random blood sugar was 56. Liver function testing was normal including bilirubin 0.2, AST 26, ALT 26, and alkaline phosphatase 73. Lipase is normal at 39. White count 5900, hemoglobin 14.5, hematocrit 44.7, and platelets 245,000. PT/INR 1.04, PTT 29.5. Urine negative. Chest x-ray shows no active pulmonary disease. IMPRESSION: A 46-year-old female with abdominal discomfort in the setting of history of perforated gastric ulcer in the distant past, as well as peptic ulcer disease with gastroesophageal reflux disease, hypokalemia, history of exploratory laparotomy for abdominal adhesions, and now with comorbidities as listed above. PLAN: My plans are to admit this patient. I have requested a consultations with Dr. Maurice Maynard from GI, Dr. Sierra from Psychiatry, and Dr. Alexander from Pain Management. I have discussed in detail with the patient that she will need to have her psychotropic medications outlined and adjusted by Psychiatry and all of her pain management medication ordered by Dr. Alexander. She was seen by Dr. Maurice Maynard yesterday prior to leaving [place] and the patient is aware of the above plan of action. This was discussed in detail with her nurse, Preethi Solis, registered nurse, and hopefully the patient will be compliant with the above. At present, she is receiving a parenteral potassium replacement treatment and her overall prognosis remains stable at present. Shaina Yu MD MTDD
--- NOTE | 2016-10-17 09:51 | DS ---
The patient left AMA 10/15/2016. SUMMARY: This is a 46-year-old female, who was admitted to [facility] twice within 24 hours for abdominal pain, was noted by nursing staff to be demanding of pain medication, especially parenteral morphine and IV Benadryl, which was not felt to be appropriate by medical staff while awaiting consultation from Pain Management, Psychiatry, and Gastroenterology. She became threatening with the nursing staff and refused to sign her AMA form and left the floor after IVs were removed by nursing staff. Shaina Yu MD MTDD
== END 2016-10-15 21:50 | disposition left against medical advice (07) ==
LOC: ED 14:26 → ERH 16:05 → 5RNO 17:04
PROVIDERS: ADMIT Internal Medicine; ATTEND Internal Medicine
DX: R10.9 Unspecified abdominal pain (principal); G89.4 Chronic pain syndrome; I10 Essential (primary) hypertension; J44.9 Chronic obstructive pulmonary disease, unspecified; K21.9 Gastro-esophageal reflux disease without esophagitis; K31.84 Gastroparesis; Z79.51 Long term (current) use of inhaled steroids; Z79.899 Other long term (current) drug therapy; Z87.11 Personal history of peptic ulcer disease; Z90.49 Acquired absence of other specified parts of digestive tract; F17.210 Nicotine dependence, cigarettes, uncomplicated
CPT/HCPCS: 71010; 80053; 81001; 83690; 84703; 85025; 85610; 85730; 96361; 96374; 96376; 99285; G0378; J2405; J3480; J7040; J7042

== ENCOUNTER 2016-11-09 11:01 | Emergency (ER) | payer MEDICARE, OTHER ==
[2016-11-09 11:02] VITALS: BMI 13.8
[2016-11-09 11:10] VITALS: TEMP 98.1
[2016-11-09] MEDS ORDERED: DiphenhydrAMINE 50 mg/ml Inj IVP STA (12:03)
[2016-11-09] MEDS ORDERED: Sodium Chloride 0.9% 1,000 ML IV STA (12:03)
[2016-11-09] MEDS ORDERED: Morphine 4 mg/ml ISec IVP STA (12:03)
[2016-11-09] MEDS ORDERED: Iohexol 240 (50 ml) ONE (12:08)
--- NOTE | 2016-11-09 12:46 | ED PDOC ---
Arrival/HPI - General Chief Complaint: Abdominal Pain Time Seen by Provider: 11/09/16 11:31 Historian: Patient - History of Present Illness Narrative History of Present Illness (Text): 11/09/16 11:31 A 46 year old female, whose past medical history includes hypertension and asthma, presents to the emergency department complaining of LUQ abdominal pain, nausea, vomiting, and diarrhea for 2 weeks. Patient reports she takes stomach medications for previous ulcer. Patient states she has had her gallbladder removed and exploratory laparoscopy. Patient notes having "black" stool and experiencing headache, but denies of any vaginal discharge, vaginal bleeding, or any other complaints. Patient mentions she has lost 10 lbs in the past month and has been taking Benadryl for her headaches. No PMD Time/Duration: > week (2 weeks) Symptom Onset: Gradual Symptom Course: Unchanged Past Medical History - Provider Review Nursing Documentation Reviewed: Yes - Infectious Disease Hx of Infectious Diseases: None - Cardiac Hx Cardiac Disorders: Yes Hx Hypertension: Yes - Pulmonary Hx Asthma: Yes - Neurological Hx Neurological Disorder: No - HEENT Hx HEENT Disorder: Yes Other/Comment: dry eyes - Renal Hx Renal Disorder: No - Endocrine/Metabolic Hx Endocrine Disorders: No - Hematological/Oncological Hx Blood Disorders: No - Integumentary Hx Dermatological Disorder: No - Musculoskeletal/Rheumatological Hx Musculoskeletal Disorders: Yes - Gastrointestinal Hx Gastrointestinal Ulcer: Yes (PER PT ''PERFORATED'') - Genitourinary/Gynecological Hx Genitourinary Disorders: No - Psychiatric Hx Anxiety: Yes Hx Depression: Yes Hx Substance Use: No - Surgical History Hx Cholecystectomy: Yes - Anesthesia Hx Anesthesia: Yes Hx Anesthesia Reactions: No Family/Social History - Physician Review Nursing Documentation Reviewed: Yes Family/Social History: No Known Family HX Smoking Status: Heavy Smoker > 10 Cigarettes Daily Hx Alcohol Use: No Hx Substance Use: No Allergies/Home Meds Allergies/Adverse Reactions: Allergies vancomycin Allergy (Severe, Verified 11/09/16 11:07) ANAPHYLAXIS Home Medications: Home Meds Medication Instructions Recorded Confirmed Atenolol [Tenormin] 25 mg PO DAILY 10/13/16 11/09/16 Diazepam [Valium] 5 mg PO DAILY 10/13/16 11/09/16 DiphenhydrAMINE [Benadryl] 1 tab PO DAILY 10/13/16 11/09/16 Ergocalciferol (Vitamin D2) 1 tab PO QWK 10/13/16 11/09/16 [Vitamin D2] Famotidine [Pepcid] 1 tab PO DAILY 10/13/16 11/09/16 Fluticasone Propionate [Flovent 1 puff IH DAILY 10/13/16 11/09/16 Diskus] Gabapentin [Neurontin] 400 mg PO TID 10/13/16 11/09/16 LORazepam [Ativan] 2 mg PO TID 10/13/16 11/09/16 Metoclopramide [Reglan] 5 mg PO DAILY 10/13/16 11/09/16 Omeprazole Magnesium [Prilosec Otc] 1 tab PO DAILY 10/13/16 11/09/16 Spironolactone [Aldactone] 1 tab PO DAILY 10/13/16 11/09/16 Sucralfate [Carafate] 10 ml PO DAILY 10/13/16 11/09/16 Trazodone HCl [Trazodone HCl] 150 mg PO DAILY 10/13/16 11/09/16 fentaNYL 100mcg/hr [Duragesic 1 patch TD Q72H 10/13/16 11/09/16 Patch 100mcg/hr] Review of Systems - Physician Review All systems were reviewed & negative as marked: Yes - Review of Systems Constitutional: absent: Fevers Gastrointestinal: Abdominal Pain (left upper quadrant), Diarrhea ("black" stool) , Nausea, Vomiting Genitourinary Female: absent: Vaginal Bleeding, Vaginal Discharge Neurological: Headache Physical Exam Vital Signs Reviewed: Yes Vital Signs Temp Pulse Resp BP Pulse Ox 11/09/16 15:25 82 16 131/79 100 11/09/16 13:02 88 12 129/85 100 11/09/16 11:09 98.1 F 107 H 16 115/82 96 Temperature: Afebrile Blood Pressure: Normal Pulse: Tachycardic Respiratory Rate: Normal Appearance: Positive for: Well-Appearing Pain Distress: Moderate Mental Status: Positive for: Alert and Oriented X 3 - Systems Exam Head: Present: Atraumatic, Normocephalic Pupils: Present: PERRL Extroacular Muscles: Present: EOMI Conjunctiva: Present: Normal Mouth: Present: Moist Mucous Membranes Neck: Present: Normal Range of Motion Respiratory/Chest: Present: Clear to Auscultation, Good Air Exchange. No: Respiratory Distress, Accessory Muscle Use Cardiovascular: Present: Regular Rate and Rhythm, Normal S1, S2. No: Murmurs Abdomen: Present: Tenderness (epigastric and left upper. No lower abdominal tenderness), Guarding, Other (surgical scars all over abdomen). No: Rebound Back: Present: Normal Inspection Upper Extremity: Present: Normal Inspection. No: Cyanosis, Edema Lower Extremity: Present: Normal Inspection. No: Edema Neurological: Present: GCS=15, CN II-XII Intact, Speech Normal Skin: Present: Warm, Dry, Normal Color. No: Rashes Psychiatric: Present: Alert, Oriented x 3, Normal Insight, Normal Concentration Medical Decision Making ED Course and Treatment: 11/09/16 11:40 Impression: 46 year old female with LUQ abdominal pain, nausea, vomiting, and diarrhea. Physical exam shows LUQ tenderness, surgical scars all over abdomen; moist mucous membranes; moderate painful distress. Differential Diagnosis included but are not limited to: Gastritis vs. Pancreatitis Plan: -- Abd/Pelvis CT -- Labs -- Benadryl -- Reglan -- Morphine -- IV Fluids -- Reassess and disposition Prior Visits: Notes and results from previous visits were reviewed. Patient was last seen in the emergency department on 11/07/2016 for recurring abdominal pain, nausea, vomiting, and diarrhea. Patient was admitted. Progress Notes: - Lab Interpretations Lab Results: 11/09/16 12:30 11/09/16 12:30 Lab Results 11/09/16 12:30: Sodium 143, Potassium 3.2 L, Chloride 107, Carbon Dioxide 28, Anion Gap 11, BUN 10, Creatinine 0.5, Est GFR ( Amer) > 60, Est GFR (Non- Af Amer) > 60, Random Glucose 81, Calcium 8.9, Total Bilirubin 0.2, AST 22, ALT 22, Alkaline Phosphatase 103, Total Protein 6.3, Albumin 3.4, Globulin 2.9, Albumin/Globulin Ratio 1.2, Lipase 26 11/09/16 12:30: PT 11.5, INR 1.06, APTT 28.3 11/09/16 12:30: WBC 6.8, RBC 4.45, Hgb 13.8, Hct 42.5, MCV 95.5, MCH 31.0, MCHC 32.5, RDW 14.9 H, Plt Count 323, MPV 8.0, Gran % 74.9 H, Lymph % (Auto) 19.1 L, Bullock % (Auto) 4.3, Eos % (Auto) 1.0 L, Baso % (Auto) 0.7, Gran # 5.05, Lymph # 1.3, Bullock # 0.3, Eos # 0.1, Baso # 0.05 I have reviewed the lab results: Yes - RAD Interpretation Radiology Orders: 11/09/16 12:20 ABD & PELVIS IV CONTRAST ONLY [CT] Stat - Medication Orders Current Medication Orders: Discontinued Medications Clonazepam (Klonopin) 1 mg PO STAT STA PRN Reason: Protocol Stop: 11/09/16 15:02 Last Admin: 11/09/16 15:08 Dose: 1 mg Diphenhydramine HCl (Benadryl) 25 mg IVP STAT STA Stop: 11/09/16 12:04 Last Admin: 11/09/16 12:48 Dose: 25 mg Sodium Chloride (Sodium Chloride 0.9%) 1,000 mls @ 999 mls/hr IV .Q1H1M STA Stop: 11/09/16 13:03 Last Admin: 11/09/16 12:49 Dose: 999 mls/hr Potassium Chloride (Potassium Chloride 20 Meq/100 Ml) 20 meq in 100 mls @ 50 mls/hr IVPB ONCE ONE Stop: 11/09/16 16:28 Last Admin: 11/09/16 14:38 Dose: 50 mls/hr Iohexol (Omnipaque 240 (50 Ml)) Confirm Administered Dose 50 ml .ROUTE .STK-MED ONE Stop: 11/09/16 12:09 Iohexol (Omnipaque 300 100 Ml) Confirm Administered Dose 100 ml IJ .STK-MED ONE Stop: 11/09/16 13:38 Metoclopramide HCl (Reglan) 10 mg IVP STAT STA Stop: 11/09/16 12:47 Last Admin: 11/09/16 12:53 Dose: 10 mg Morphine Sulfate (Morphine) 4 mg IVP STAT STA Stop: 11/09/16 12:04 Last Admin: 11/09/16 12:48 Dose: 4 mg Re-Assess: DEBI Pain Assessment Document 11/09/16 13:48 OCS (Rec: 11/09/16 15:24 OCS [id number]) Pain Reassessment Is this a pain reassessment? Yes Sleep Is patient sleeping during reassessment? No Presence of Pain Presence of Pain Yes Pain Scale Used Pain Scale Used Numeric Location Pain Location Body Site Abdomen Description Description Constant Intensity of Pain at present 4 Ondansetron HCl (Zofran Inj) 4 mg IVP STAT STA Stop: 11/09/16 14:30 Last Admin: 11/09/16 14:38 Dose: 4 mg Potassium Chloride (K-Dur 20 Meq Er Tab) 40 meq PO STAT STA Stop: 11/09/16 13:12 Last Admin: 11/09/16 13:56 Dose: Not Given Non-Admin Reason: Patient Refused Potassium Chloride (Potassium Chloride Oral Soln) 40 meq PO STAT STA Stop: 11/09/16 15:07 Last Admin: 11/09/16 15:24 Dose: 40 meq ED OBSERVATION Date of observation admission: 11/09/16 Time of observation admission: 11:31 - Observation admission statement Patient is being placed in observation because:: Abdominal pain - Goals of Observation Goals of observation are:: Observing patient until symptoms have been relieved. - Progress Note Progress Note: 11/09/2016 14:30 Abd/Pelvis CT IMPRESSION: No acute abnormality. Hepatomegaly. Status post cholecystectomy. 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 Surgical clips indicating prior surgery of unknown type. Uterus not well visualized. 9 mm rounded low-density structure in pelvis possibly a uterine fibroid or an adnexal cyst. Consider correlation with pelvic ultrasound. Dictator : Robert Watters MD 11/09/16 14:41 Patient is refusing PO potassum. She finally agreed to IV potassium which was ordered. She also needed Zofran 4mg IV for more nausea. She seems to be manipulative in nature and I"m concerned for drug seeking behavior. 11/09/16 15:07 Patient is feeling much better. She is tolerating PO fluids in the ED. Her abdomen is soft and not tender. No guarding or rebound. Patient will be discharged home with follow up with her PMD. - Scribe Statement The provider has reviewed the documentation as recorded by the Charissa Parra Provider Scribe Attestation: All medical record entries made by the Scribmadeleine were at my direction and personally dictated by me. I have reviewed the chart and agree that the record accurately reflects my personal performance of the history, physical exam, medical decision making, and the department course for this patient. I have also personally directed, reviewed, and agree with the discharge instructions and disposition. Disposition/Present on Arrival - Present on Arrival Any Indicators Present on Arrival: No History of DVT/PE: No History of Uncontrolled Diabetes: No Urinary Catheter: No History of Decub. Ulcer: No History Surgical Site Infection Following: None - Disposition Have Diagnosis and Disposition been Completed?: Yes Diagnosis: Abdominal pain, Hypokalemia Disposition: HOME/ ROUTINE Disposition Time: 15:07 Patient Plan: Discharge Condition: IMPROVED Discharge Instructions (ExitCare): Hypokalemia (ED), Acute Abdominal Pain (ED) Additional Instructions: Ms Sky, thank you for letting us take care of you today. Your provider was Dr. French. You were treated for Abdominal Pain, Hypokalemia. The emergency medical care you received today was directed at your acute symptoms. If you were prescribed any medication, please fill it and take as directed. It may take several days for your symptoms to resolve. Return to the Emergency Department if your symptoms worsen, do not improve, or if you have any other problems. Please contact your doctor or call one of the physicians/clinics you have been referred to that are listed on the Patient Visit Information form that is included in your discharge packet. Bring any paperwork you were given at discharge with you along with any medications you are taking to your follow up visit. Our treatment cannot replace ongoing medical care by a primary care provider (PCP) outside of the emergency department. Thank you for allowing the [facility] team to be part of your care today. If you had an X-Ray or CT scan: A Radiologist will review the ED reading if any change in treatment is needed we will contact you. If you had a blood, urine, or wound culture: It will take several days for the results, if any change in treatment is needed we will contact you. If you had an STI test: It will take 48 hours for the results. Please call after 1 week if you have not heard back. Prescriptions: Ondansetron ODT [Zofran ODT] 4 mg PO Q6 #14 odt Ranitidine HCl [Zantac] 150 mg PO BID PRN #30 tablet PRN Reason: Pain, Mild (1-3) Referrals: PCP,NO [Primary Care Provider] - Follow up with primary Forms: [employer] (Peruvian), WORK NOTE
[2016-11-09 13:00] LABS: BASO # 0.05 K/mm3 (0.0-2.0); BASO % 0.7 % (0.0-3.0); EOS # 0.1 (0.0-0.7); GRAN # 5.05 (1.4-6.5); GRAN % 74.9 % (50.0-68.0); HEMATOCRIT 42.5 % (36.0-48.0); LYMPH # 1.3 (1.2-3.4); LYMPH % 19.1 % (22.0-35.0); MEAN CELL VOLUME 95.5 fl (80.0-105.0); MEAN CORPUSCULAR HGB CONC 32.5 g/dl (31.0-37.0); MONO # 0.3 (0.1-0.6); MONO % 4.3 % (1.0-6.0); RED CELL DISTRIBUTION WIDTH 14.9 % (11.5-14.5); WHITE BLOOD COUNT 6.8 10^3/ul (4.5-11.0)
[2016-11-09 13:06] LABS: ALB/GLOB RATIO 1.2 (1.1-1.8); ALKALINE PHOSPHATASE 103 U/L (38-126); ALT/SGPT 22 U/L (7-56); AST/SGOT 22 U/L (14-36); BILIRUBIN,TOTAL 0.2 mg/dL (0.2-1.3); BLOOD UREA NITROGEN 10 mg/dL (7-21); CALCIUM 8.9 mg/dL (8.4-10.5); CARBON DIOXIDE 28 mmol/L (21-33); CHLORIDE 107 mmol/L (98-107); GFR AFRICAN-AMERICAN > 60; GLUCOSE,RANDOM 81 mg/dL (70-110); INR 1.06 (0.93-1.08); LIPASE 26 U/L (23-300); PARTIAL THROMBOPLASTIN TIME 28.3 Seconds (23.7-30.8); POTASSIUM 3.2 mmol/L (3.6-5.0); SODIUM 143 mmol/L (132-148); TOTAL PROTEIN 6.3 g/dL (5.8-8.3)
[2016-11-09] MEDS ORDERED: Potassium Chloride 20 mEq ER Tab PO STA (13:11)
[2016-11-09] MEDS ORDERED: Iohexol 300 100 ML IJ ONE (13:37)
[2016-11-09 14:26] VITALS: O2SAT 100
--- NOTE | 2016-11-09 14:32 | CT ---
PROCEDURE: CT Abdomen and Pelvis with contrast HISTORY: abd pain COMPARISON: 10/13/2016 TECHNIQUE: Contrast dose: 100 mL Omnipaque 300 Radiation dose: Total exam DLP = 204.40 mGy-cm. This CT exam was performed using one or more of the following dose reduction techniques: Automated exposure control, adjustment of the mA and/or kV according to patient size, and/or use of iterative reconstruction technique. FINDINGS: LOWER THORAX: stable focal opacity medial right middle lobe with mild associated bronchiectasis. Linear scar/ atelectasis left lower lobe, unchanged. LIVER: Hepatic megaly. Smooth contour. Mild central intrahepatic biliary dilatation. Likely related to prior cholecystectomy. Previously identified hypodense lesion in the inferior right hepatic lobe is questionably identified on the current examination. However, the evaluation is limited by respiratory motion artifact. The lesion identified on current examination is less hypodense than on prior examination which may be related to the phase of contrast enhancement. It measures approximately 6 mm. There is no other mass identified. Once again, there are calcifications seen anterior to the inferior right hepatic lobe. GALLBLADDER AND BILE DUCTS: Status post cholecystectomy. Mild dilatation of the common bile duct likely related to prior cholecystectomy and unchanged from CT of 10/13/2016. PANCREAS: Evaluation limited by respiratory motion artifact. No abnormality identified. SPLEEN: Unremarkable. ADRENALS: Unremarkable. No mass. KIDNEYS AND URETERS: Unremarkable. No hydronephrosis. No solid mass. VASCULATURE: No aortic aneurysm. 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 BOWEL: Unremarkable. No obstruction. No gross mural thickening. APPENDIX: Not identified. No secondary findings to suggest acute appendicitis. PERITONEUM: Unremarkable. No free fluid. No free air. LYMPH NODES: Unremarkable. No enlarged lymph nodes. BLADDER: Unremarkable. REPRODUCTIVE: Normal uterus not clearly identified. What is most likely the uterus is seen in association with a 9 mm rounded low-density lesion. Possible fibroid. Possible adnexal cyst. Consider correlation with pelvic ultrasound. BONES: No acute fracture. OTHER FINDINGS: None. Varices. IMPRESSION: No acute abnormality. Hepatomegaly. Status post cholecystectomy. 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 Surgical clips indicating prior surgery of unknown type. Uterus not well visualized. 9 mm rounded low-density structure in pelvis possibly a uterine fibroid or an adnexal cyst. Consider correlation with pelvic ultrasound.
[2016-11-09] MEDS ORDERED: Potassium Chloride 40 mEq/30 ml LIQ UD PO STA (15:06)
[2016-11-09 15:26] VITALS: BP 131/79; PULSE 82; RESP 16
== END 2016-11-09 15:27 | disposition home or self-care (01) ==
LOC: ED 11:01
DX: E87.6 Hypokalemia (principal); R10.9 Unspecified abdominal pain; I10 Essential (primary) hypertension; F17.210 Nicotine dependence, cigarettes, uncomplicated
CPT/HCPCS: 74177; 80053; 83690; 85025; 85610; 85730; 96374; 96375; 99284; J1200; J2270; J2405; J2765; J3480; J7040; Q9966; Q9967

== ENCOUNTER 2016-11-19 14:10 | Emergency (ER) | payer MEDICARE, OTHER ==
[2016-11-19 14:15] VITALS: BMI 14.1
--- NOTE | 2016-11-19 14:47 | ED PDOC ---
Arrival/HPI - General Chief Complaint: Psychiatric Evaluation Time Seen by Provider: 11/19/16 14:29 Historian: Patient - History of Present Illness Narrative History of Present Illness (Text): 11/19/16 14:30 46 y/o female, pmh including htn and asthma, allergic to vanocmycin, c/o needs the prescription for the klonipin 1mg/tablet prescription as she is out of it today. Pt. stated that she has chronic anxiety, out of her klonipin 1mg/tablet today and due for it. Pt. stated that she feels mildly anxious and will get better when she take this medication, stated that she is not homicidal or suicidal ideation, no auditory or visual hallucinations, no chest pain or shortness of breath, no palpitation, no other medical or psychological complaints. Past Medical History - Provider Review Nursing Documentation Reviewed: Yes - Infectious Disease Hx of Infectious Diseases: None - Cardiac Hx Cardiac Disorders: Yes Hx Hypertension: Yes - Pulmonary Hx Asthma: Yes - Neurological Hx Neurological Disorder: No - HEENT Hx HEENT Disorder: Yes Other/Comment: dry eyes - Renal Hx Renal Disorder: No - Endocrine/Metabolic Hx Endocrine Disorders: No - Hematological/Oncological Hx Blood Disorders: No - Integumentary Hx Dermatological Disorder: No - Musculoskeletal/Rheumatological Hx Musculoskeletal Disorders: Yes - Gastrointestinal Hx Gastroesophageal Reflux: Yes Hx Gastrointestinal Ulcer: Yes (PER PT ''PERFORATED'') Other/Comment: esophageal ulcer - Genitourinary/Gynecological Hx Genitourinary Disorders: No - Psychiatric Hx Anxiety: Yes Hx Depression: Yes Hx Substance Use: No - Surgical History Hx Cholecystectomy: Yes Other/Comment: partial gastrectomy - Anesthesia Hx Anesthesia: Yes Hx Anesthesia Reactions: No Family/Social History - Physician Review Nursing Documentation Reviewed: Yes Family/Social History: Unknown Family HX Smoking Status: Heavy Smoker > 10 Cigarettes Daily Hx Alcohol Use: No Hx Substance Use: No Allergies/Home Meds Allergies/Adverse Reactions: Allergies vancomycin Allergy (Severe, Verified 11/09/16 11:07) ANAPHYLAXIS Home Medications: Home Meds Medication Instructions Recorded Confirmed Atenolol [Tenormin] 25 mg PO DAILY 10/13/16 11/09/16 Diazepam [Valium] 5 mg PO DAILY 10/13/16 11/09/16 DiphenhydrAMINE [Benadryl] 1 tab PO DAILY 10/13/16 11/09/16 Ergocalciferol (Vitamin D2) 1 tab PO QWK 10/13/16 11/09/16 [Vitamin D2] Famotidine [Pepcid] 1 tab PO DAILY 10/13/16 11/09/16 Fluticasone Propionate [Flovent 1 puff IH DAILY 10/13/16 11/09/16 Diskus] Gabapentin [Neurontin] 400 mg PO TID 10/13/16 11/09/16 LORazepam [Ativan] 2 mg PO TID 10/13/16 11/09/16 Metoclopramide [Reglan] 5 mg PO DAILY 10/13/16 11/09/16 Omeprazole Magnesium [Prilosec Otc] 1 tab PO DAILY 10/13/16 11/09/16 Spironolactone [Aldactone] 1 tab PO DAILY 10/13/16 11/09/16 Sucralfate [Carafate] 10 ml PO DAILY 10/13/16 11/09/16 Trazodone HCl [Trazodone HCl] 150 mg PO DAILY 10/13/16 11/09/16 fentaNYL 100mcg/hr [Duragesic 1 patch TD Q72H 10/13/16 11/09/16 Patch 100mcg/hr] Review of Systems - Review of Systems Constitutional: absent: Fatigue, Fevers Eyes: absent: Vision Changes ENT: absent: Hearing Changes Respiratory: absent: SOB, Cough Cardiovascular: absent: Chest Pain Gastrointestinal: absent: Abdominal Pain, Diarrhea, Nausea, Vomiting Musculoskeletal: absent: Arthralgias, Back Pain Skin: absent: Rash Neurological: absent: Headache, Dizziness Psychiatric: Anxiety. absent: Depression, Suicidal Ideation Physical Exam - Systems Exam Head: Present: Atraumatic, Normocephalic Pupils: Present: PERRL Extroacular Muscles: Present: EOMI Conjunctiva: Present: Normal Mouth: Present: Moist Mucous Membranes Neck: Present: Normal Range of Motion Respiratory/Chest: Present: Clear to Auscultation, Good Air Exchange. No: Respiratory Distress, Accessory Muscle Use Cardiovascular: Present: Regular Rate and Rhythm, Normal S1, S2. No: Murmurs Abdomen: Present: Normal Bowel Sounds. No: Tenderness, Distention, Peritoneal Signs Back: Present: Normal Inspection Upper Extremity: Present: Normal Inspection. No: Cyanosis, Edema Lower Extremity: Present: Normal Inspection. No: Edema Neurological: Present: GCS=15, CN II-XII Intact, Speech Normal Skin: Present: Warm, Dry, Normal Color. No: Rashes Psychiatric: Present: Alert, Oriented x 3, Normal Insight, Normal Concentration Medical Decision Making ED Course and Treatment: 11/19/16 14:50 -Pt. doesn't appear to be anxious, no tremors or tongue fasciculation, request her usual dose klonipin 1mg/tablet, ordered and stated that she will like to be discharged home. -Pt. refused psychiatric evaluation. -Pt. has been receiving klonipin continuously from Dr. Robin Guevara MD and OPHTHALMIC PHOTOGRAPHER Cy Cazares which I advised the patient to follow up with them for the prescription since there is consistency of the following up. -Discharge home with education on take the taxi cab home, follow up with your own pmd or your previous prescribers Dr. Robin Guevara MD and KATHERINE Cazares for follow up as the ER is not a perfect place for prescription refill, return to the ER for any new or worsening signs or symptoms. - PA / OPHTHALMIC PHOTOGRAPHER / Resident Statement MD/DO has reviewed & agrees with the documentation as recorded. Disposition/Present on Arrival - Present on Arrival Any Indicators Present on Arrival: No History of DVT/PE: No History of Uncontrolled Diabetes: No Urinary Catheter: No History of Decub. Ulcer: No History Surgical Site Infection Following: None - Disposition Have Diagnosis and Disposition been Completed?: Yes Diagnosis: Medication refill Disposition: HOME/ ROUTINE Disposition Time: 15:01 Patient Plan: Discharge Condition: GOOD Additional Instructions: -Discharge home with education on take the taxi cab home, follow up with your own pmd or your previous prescribers Dr. Robin Guevara MD and KATHERINE Cazares for follow up as the ER is not a perfect place for prescription refill, return to the ER for any new or worsening signs or symptoms. Referrals: [facility] [place] - Follow up with primary [facility] [Outside] - Follow up with primary
[2016-11-19 15:27] VITALS: BP 118/82; PULSE 93; RESP 18; TEMP 97.9; O2SAT 98
== END 2016-11-19 15:30 | disposition left against medical advice (07) ==
LOC: ED 14:10
DX: Z76.0 Encounter for issue of repeat prescription (principal); F41.9 Anxiety disorder, unspecified; I10 Essential (primary) hypertension; F17.210 Nicotine dependence, cigarettes, uncomplicated